=== PATIENT | male | born 1930 | race Caucasian/White ===

== ENCOUNTER 2016-06-14 15:18 | Inpatient (IN) | payer MEDICARE, BC ==
[~2016-06-14] VITALS: Ht 182.9 cm; Wt 126.6 kg
[2016-06-14] MEDS ORDERED: Albuterol ud Inhalation HHN ONE (15:30)
[2016-06-14] MEDS ORDERED: Nitroglycerin 2% oint pkt TOPIC ONE (15:45)
--- NOTE | 2016-06-14 16:16 | Diagnostic Imaging Report ---
Indication: Altered mental status Technique: Contiguous 5 mm thick transaxial imaging of the head obtained in a Siemens Sensation [address] scanner. Soft tissue and bone windows generated. Total Dose length Product (DLP): [address] Dose Index Volume (CTDIvol): 70.38 mGy Comparison: none Findings: There is moderate prominence of the ventricles, basal cisterns, and cerebral sulci consistent with atrophy. Moderate, nonspecific, white matter hypoattenuation is noted throughout the brain consistent with chronic small vessel disease. There is no midline shift, edema, acute hemorrhage, mass effect, or abnormal extra-axial fluid collections. Cranial soft tissue air likely indicative of injury or laceration noted over the left temporal region. Partial right mastoid resection noted. Impression: No acute intracranial bleed, mass effect or edema. Moderate atrophy of the brain. Evidence of chronic small vessel disease involving white matter tracts. Left scalp contusion and laceration. Status post partial right mastoidectomy. The CT scanner at [facility] is accredited by the [employer] and the scans are performed using protocols designed to limit radiation exposure to as low as reasonably achievable to attain images of sufficient resolution adequate for diagnostic evaluation.
--- NOTE | 2016-06-14 16:17 | Diagnostic Imaging Report ---
Indication: Chest Pain Comparison: None A single view chest radiograph was obtained. Findings: There is enlargement of the cardiac silhouette with pulmonary vascular redistribution and prominence, hazy vessel margins and the suggestion of interstitial edema consistent with CHF. The bones are osteopenic. Aorta is calcified. Impression: Moderate CHF
[2016-06-14 16:22] LABS: BASOPHILS % (AUTO) 1.1 % (0.0-2.0); EOSINOPHILS % (AUTO) 3.8 % (0.0-3.0); LYMPHOCYTES % (AUTO) 24.6 % (20.0-45.0); MEAN CORPUSCULAR HEMOGLOBIN 28.1 PG (27.0-31.0); MEAN CORPUSCULAR HGB CONC 33.2 G/DL (32.0-36.0); MEAN CORPUSCULAR VOLUME 85 FL (80-99); MEAN PLATELET VOLUME 6.6 FL (6.5-10.1); MONOCYTES % (AUTO) 11.4 % (1.0-10.0); NEUTROPHILS % (AUTO) 59.2 % (45.0-75.0); PLATELET COUNT 132 K/UL (150-450); RED BLOOD COUNT 4.16 M/UL (4.70-6.10); RED CELL DISTRIBUTION WIDTH 18.1 % (11.6-14.8); WHITE BLOOD COUNT 4.8 K/UL (4.8-10.8)
[2016-06-14 16:32] LABS: TROPONIN I < 0.30 ng/mL (<=0.30)
[2016-06-14 16:42] LABS: ALANINE AMINOTRANSFERASE 10 U/L (3-41); ALBUMIN/GLOBULIN RATIO 0.9 (1.0-2.7); ANION GAP 14 (5-15); ASPARTATE AMINO TRANSFERASE 24 U/L (5-40); CALCIUM 8.7 mg/dL (8.6-10.2); CARBON DIOXIDE 30 mEQ/L (20-30); CHLORIDE 96 mEQ/L (98-107); HEMOLYSIS 3; SODIUM 140 mEQ/L (135-145); TOTAL PROTEIN 7.1 g/dL (6.6-8.7)
[2016-06-14 16:48] VITALS: BP 150/53
[2016-06-14 16:52] LABS: CKMB 2.5 ng/mL (< 6.7)
[2016-06-14 17:01] LABS: BILIRUBIN,DIRECT 0.5 mg/dL (0.1-0.3)
[2016-06-14] MEDS ORDERED: Miralax 17gm pkt ORAL PRN (17:15)
[2016-06-14 18:00] VITALS: BP 129/70
--- NOTE | 2016-06-14 18:10 | Emergency Room Report ---
History of Present Illness General Chief Complaint: Altered Level of Consciousness Source: Family Member, EMS Present Illness HPI This patient is brought in by EMS. Apparently, the patient had been out and about with his . However, the car broke down and they were stock away from home. The states that typically he sleeps in the afternoons and he was sleeping in the car but when they got home she was unable to arouse him. He was unable to get out of the car. EMS report that when they arrived he is minimally responsive to them and had a low oxygen saturation in the high 70s. The reports that he does have a history of congestive heart failure and COPD. She states at home he normally is on oxygen and when he is sleeping she has him on CPAP. She states that he was out for an extended time. He has a lot of fluid overload secondary to congestive heart failure. She states that his abdomen has a lot of fluid as does his lower extremities. His primary physician give him Lasix. He normally goes to [facility]. Her last admission there was for pneumonia about 6 months ago. The patient himself does open his eyes to stimulation and makes eye contact. He does not give a history. Allergies: Coded Allergies: No Known Allergies (Unverified , 06/14/16) Patient History Past Medical History: see triage record, CO, CAD, CHF, AFib, COPD, pneumonia, GERD, other - prostate ca Social History: Denies: alcohol use, drug use, smoking Reviewed Nursing Documentation: PMH: Agreed, PSxH: Agreed Nursing Documentation-PMH Past Medical History: No History, Except For Hx Cardiac Problems: Yes - a fib, CHF Hx Hypertension: Yes Hx COPD: Yes Hx Diabetes: Yes Hx Cancer: Yes - prostate cancer Review of Systems All Other Systems: negative except mentioned in HPI Physical Exam Vital Signs Date Time Temp Pulse Resp B/P Pulse Ox O2 Delivery O2 Flow Rate FiO2 06/14/16 15:12 64 16 142/76 97 Non-Rebreather 15.0 06/14/16 15:37 50 Sp02 EP Interpretation: reviewed, abnormal General Appearance: no apparent distress, alert, GCS 15, non-toxic Head: normocephalic, atraumatic Eyes: bilateral eye PERRL, bilateral eye normal inspection ENT: normal pharynx, no angioedema Neck: full range of motion, supple/symm/no masses Respiratory: chest non-tender, rales, wheezing, expiration Cardiovascular #1: irregularly irregular, edema - 3+BLE edema Gastrointestinal: normal bowel sounds, non tender, soft, no guarding, no rebound, distended Rectal: deferred Musculoskeletal: normal range of motion, non-tender Neurologic: responsive, other - Sleepy but non-focal. Psychiatric: other - Unable to fully assess Skin: normal color, no rash, warm/dry, well hydrated Medical Decision Making Diagnostic Impression: Primary Impression: CHF exacerbation Additional Impressions: Wheezing Pulmonary edema ER Course This patient was initially hypoxemic on arrival. He did improve with only nasal cannula with time. Initially the patient was in the high 80s and then improved into the mid 90s with nasal cannula oxygen. The patient was also wheezing and appears to have a mixed of COPD exacerbation and CHF exacerbation. I treated for both with breathing treatments and also Lasix and nitroglycerin. The patient was placed on BiPAP for comfort. There is no evidence of intracranial process or other etiology of this patient's altered mental status. Likely, this patient is off oxygen for to long and became hypoxemic. Regardless, the patient is admitted to the ICU step down. This patient is critically ill. This patient required complex medical decision- making, aggressive intervention, extensive laboratory workup and monitoring. Critical care time: 40 minutes. Labs Test 06/14/16 16:00 White Blood Count 4.8 K/UL (4.8-10.8) Red Blood Count 4.16 M/UL (4.70-6.10) Hemoglobin 11.7 G/DL (14.2-18.0) Hematocrit 35.3 % (42.0-52.0) Mean Corpuscular Volume 85 FL (80-99) Mean Corpuscular Hemoglobin 28.1 PG (27.0-31.0) Mean Corpuscular Hemoglobin Concent 33.2 G/DL (32.0-36.0) Red Cell Distribution Width 18.1 % (11.6-14.8) Platelet Count 132 K/UL (150-450) Mean Platelet Volume 6.6 FL (6.5-10.1) Neutrophils (%) (Auto) 59.2 % (45.0-75.0) Lymphocytes (%) (Auto) 24.6 % (20.0-45.0) Monocytes (%) (Auto) 11.4 % (1.0-10.0) Eosinophils (%) (Auto) 3.8 % (0.0-3.0) Basophils (%) (Auto) 1.1 % (0.0-2.0) Sodium Level 140 mEQ/L (135-145) Potassium Level 4.0 mEQ/L (3.4-4.9) Chloride Level 96 mEQ/L (98-107) Carbon Dioxide Level 30 mEQ/L (20-30) Anion Gap 14 (5-15) Blood Urea Nitrogen 46 mg/dL (7-23) Creatinine 2.0 mg/dL (0.7-1.2) Estimat Glomerular Filtration Rate mL/min (>60) Glucose Level 107 mg/dL (74-106) Lactic Acid Level 0.90 mmol/L (0.66-2.22) Calcium Level 8.7 mg/dL (8.6-10.2) Total Bilirubin 1.3 mg/dL (0.0-1.2) Direct Bilirubin 0.5 mg/dL (0.1-0.3) Aspartate Amino Transf (AST/SGOT) 24 U/L (5-40) Alanine Aminotransferase (ALT/SGPT) 10 U/L (3-41) Alkaline Phosphatase 145 U/L (40-129) Total Creatine Kinase 51 U/L (38-174) Creatine Kinase MB 2.5 ng/mL (< 6.7) Creatine Kinase MB Relative Index 4.9 Troponin I < 0.30 ng/mL (<=0.30) Total Protein 7.1 g/dL (6.6-8.7) Albumin 3.4 g/dL (3.5-5.2) Globulin 3.7 g/dL Albumin/Globulin Ratio 0.9 (1.0-2.7) EKG Diagnostic Results Rate: bradycardiac Rhythm: other ST Segments: no acute changes Other Impression Atrial fibrillation w/ a slow ventricular response. Rhythm Strip Diag. Results EP Interpretation: yes Rate: 60's Rhythm: no PVC's, no ectopy Other Impression A.fib with a slow ventricular response. Chest X-Ray Diagnostic Results EP Interpretation: Yes Findings: no pneumothorax, other Number of Views: 1 Other Impression Diffuse patchy opacities c/w pulmonary edema. Last Vital Signs Date Time Temp Pulse Resp B/P Pulse Ox O2 Delivery O2 Flow Rate FiO2 5/9/17 16:48 58 150/53 Bi-pap 100 06/14/16 16:09 14 100 06/14/16 15:12 15.0 Status: improved Disposition: ADMITTED INPATIENT Condition: Critical Referrals: NON PHYSICIAN (PCP) KEYON PICKETT D.O. June 14, 2016 18:10
[2016-06-14 20:00] VITALS: BP 114/72
[2016-06-14] MEDS: Heparin 5000 units/ml inj SUBQ SCH (21:00)
[2016-06-14] MEDS ORDERED: TRAMADOL HCL50 MG ORAL (22:05)
[2016-06-14] MEDS ORDERED: ROBITUSSIN100 MG/52 ORAL (22:05)
[2016-06-14] MEDS ORDERED: BENZONATATE100 MG ORAL (22:05)
[2016-06-14] MEDS ORDERED: DESITIN DIAPER28 GM TP (22:05)
[2016-06-14] MEDS ORDERED: UBIQUINOL100 MG PO (22:05)
[2016-06-14] MEDS ORDERED: WARFARIN SODIUM1 MG ORAL (22:05)
[2016-06-14] MEDS ORDERED: VITAMIN D400 INTLU ORAL (22:05)
[2016-06-14] MEDS ORDERED: DUONEB 0.5-3(2.53 ML HHN (22:05)
[2016-06-14] MEDS ORDERED: POTASSIUM CHLO20 ME2 ORAL (22:05)
[2016-06-14] MEDS ORDERED: TAMSULOSIN HCL0.4 MG ORAL (22:05)
[2016-06-14] MEDS ORDERED: COLCHICINE0.6 M1 PO (22:05)
[2016-06-14] MEDS ORDERED: TORSEMIDE20 MG ORAL (22:05)
[2016-06-14] MEDS ORDERED: VITAMIN B-1100 MG ORAL (22:05)
[2016-06-14] MEDS ORDERED: STARLIX60 MG ORAL (22:05)
[2016-06-15] VITALS: BP 156/71
[2016-06-15 04:00] VITALS: BP 120/71
[2016-06-15 05:33] LABS: BASOPHILS % (AUTO) 1.1 % (0.0-2.0); EOSINOPHILS % (AUTO) 4.1 % (0.0-3.0); LYMPHOCYTES % (AUTO) 24.3 % (20.0-45.0); MEAN CORPUSCULAR HEMOGLOBIN 26.1 PG (27.0-31.0); MEAN CORPUSCULAR HGB CONC 30.7 G/DL (32.0-36.0); MEAN CORPUSCULAR VOLUME 85 FL (80-99); MEAN PLATELET VOLUME 7.4 FL (6.5-10.1); MONOCYTES % (AUTO) 13.2 % (1.0-10.0); NEUTROPHILS % (AUTO) 57.4 % (45.0-75.0); PLATELET COUNT 127 K/UL (150-450); RED BLOOD COUNT 3.98 M/UL (4.70-6.10); RED CELL DISTRIBUTION WIDTH 18.2 % (11.6-14.8)
[2016-06-15 05:49] LABS: TROPONIN I < 0.30 ng/mL (<=0.30)
[2016-06-15 05:55] LABS: ANION GAP 15 (5-15); CALCIUM 8.7 mg/dL (8.6-10.2); CARBON DIOXIDE 26 mEQ/L (20-30); CHLORIDE 102 mEQ/L (98-107); CREATININE 1.9 mg/dL (0.7-1.2); HEMOLYSIS 10; PHOSPHORUS 4.3 mg/dL (2.5-4.8); POTASSIUM 3.9 mEQ/L (3.4-4.9); SODIUM 143 mEQ/L (135-145)
[2016-06-15 05:56] LABS: ALANINE AMINOTRANSFERASE 8 U/L (3-41); ANION GAP 13 (5-15); ASPARTATE AMINO TRANSFERASE 21 U/L (5-40); CALCIUM 8.6 mg/dL (8.6-10.2); CARBON DIOXIDE 28 mEQ/L (20-30); CHLORIDE 103 mEQ/L (98-107); CREATININE 1.9 mg/dL (0.7-1.2); MAGNESIUM 2.2 mg/dL (1.7-2.5); POTASSIUM 3.7 mEQ/L (3.4-4.9); SODIUM 144 mEQ/L (135-145); TOTAL PROTEIN 6.7 g/dL (6.6-8.7)
[2016-06-15 05:57] LABS: ALBUMIN/GLOBULIN RATIO 0.8 (1.0-2.7); HEMOLYSIS 0
[2016-06-15 06:02] LABS: INR 3.4 (0.9-1.1); PROTHROMBIN TIME 36.2 SEC (9.30-11.50)
[2016-06-15] MEDS: Nateglinide 60mg tab ORAL SCH ×3 (06:21→17:31)
[2016-06-15 08:01] VITALS: BP 130/68
[2016-06-15 08:22] LABS: ABG BASE EXCESS 3.5; ABG PCO2 45.5 mmHg (35.0-45.0)
[2016-06-15] MEDS: Benzonatate 100mg Perles ORAL SCH ×3 (09:46→17:31)
[2016-06-15] MEDS: Tamsulosin 0.4mg cap ORAL SCH ×2 (09:46→17:31)
[2016-06-15] MEDS: Heparin 5000 units/ml inj SUBQ SCH (09:48)
--- NOTE | 2016-06-15 11:51 | Diagnostic Imaging Report ---
Indication: Dyspnea Comparison: 06/14/2016 A single view chest radiograph was obtained. Findings: Similar findings demonstrated with vascular congestion and cardiomegaly. In pression: CHF. No change
[2016-06-15 12:00] VITALS: BP 118/61
--- NOTE | 2016-06-15 12:09 | History and Physical ---
History of Present Illness General Date patient seen: June 15, 2016 Reason for Hospitalization: Altered Level of Consciousness Present Illness HPI *85 year old male with hx of CAD, Afib, SANTI, CHF, COPD is brought in by EMS because his was unable to arouse him. EMS report that when they arrived he is minimally responsive to them and had a low oxygen saturation in the high 70s. Patient normally is on oxygen and when he is sleeping she has him on CPAP. He was recently diagnosed to have pulmonary edema and was started on Lasix. His CXR showed bilateral pulmonary edema. He is admitted to telemetry for further evaluation. Allergies: Coded Allergies: No Known Allergies (Unverified , 06/14/16) Medication History Scheduled Benzonatate* (Benzonatate*), 100 MG ORAL THREE TIMES A DAY, (Reported) Colchicine (Colchicine), 0.6 MG PO DAILY, (Reported) Ipratropium/Albuterol Sulfate (DuoNeb 0.5-3(2.5)mg/3ml), 3 ML HHN EVERY 4 HOURS, (Reported) Potassium Chloride (Potassium Chloride), 20 MEQ ORAL DAILY, (Reported) Tamsulosin Hcl (Tamsulosin Hcl*), 0.4 MG ORAL TWICE A DAY, (Reported) Thiamine Hcl* (Vitamin B-1*), 300 MG ORAL DAILY, (Reported) Torsemide* (Demadex*), 20 MG ORAL DAILY, (Reported) Ubiquinol (Ubiquinol), 400 MG PO DAILY, (Reported) Vitamin D (Vitamin D3), 2,000 UNITS ORAL DAILY, (Reported) Warfarin Sod* (Warfarin Sod*), 1 MG ORAL DAILY, (Reported) Scheduled PRN Guaifenesin (Guaifenesin), 200 MG ORAL Q4HR PRN for For Cough, (Reported) Nateglinide* (Starlix*), 120 MG ORAL THREE TIMES A DAY PRN for Hyperglycemia, ( Reported) Tramadol Hcl* (Ultram*), 50 MG ORAL Q8HR PRN for For Pain, (Reported) Miscellaneous Medications Cod Liver Oil/Zinc Oxide (Desitin Diaper Rash 40% Paste), 28 GM TP, (Reported) Patient History Healthcare decision maker DEBBI MENDOZA ( ) [phone] Resuscitation status Full Code Advanced Directive on File No Past Medical/Surgical History Past Medical/Surgical History: (1) CAD (coronary artery disease) (2) COPD (chronic obstructive pulmonary disease) (3) CHF (congestive heart failure) Review of Systems Constitutional: Reports: malaise Respiratory: Reports: shortness of breath All Other Systems: negative except mentioned in HPI Physical Exam General Appearance: WD/WN Lines, tubes and drains: peripheral, central line HEENT: normocephalic, atraumatic Neck: non-tender, normal alignment Respiratory/Chest: chest wall non-tender, crackles/rales Cardiovascular/Chest: normal peripheral pulses, normal rate Abdomen: normal bowel sounds, non tender Genitourinary/Rectal: normal genital exam Extremities: moderate edema Neurologic: tap puller II-XII grossly normal Last 24 Hour Vital Signs Date Time Temp Pulse Resp B/P Pulse Ox O2 Delivery O2 Flow Rate FiO2 06/15/16 10:43 55 16 96 Facial 40 06/15/16 08:31 94 5.0 40 06/15/16 08:23 94 Nasal Cannula 5.0 40 06/15/16 08:23 Nasal Cannula 5.0 40 06/15/16 08:04 69 06/15/16 08:01 98.5 61 18 130/68 91 Nasal Cannula 4.0 06/15/16 05:21 48 13 96 Facial 40 06/15/16 04:00 28 06/15/16 04:00 97.9 58 16 120/71 98 Bi-pap 06/15/16 03:54 53 06/15/16 03:29 56 14 97 Facial 40 06/15/16 01:14 58 13 97 Facial 40 06/15/16 00:00 98.0 60 156/71 99 Bi-pap 06/15/16 00:00 28 06/14/16 23:57 56 06/14/16 23:20 78 18 98 Facial 40 06/14/16 20:31 55 14 97 40 06/14/16 20:00 28 06/14/16 20:00 97.7 68 114/72 Nasal Cannula 3.0 06/14/16 19:41 Nasal Cannula 4.0 36 06/14/16 19:40 96 Nasal Cannula 4.0 36 06/14/16 19:39 58 18 4.0 36 06/14/16 19:26 67 06/14/16 18:00 97.7 83 129/70 Nasal Cannula 3.0 06/14/16 17:00 58 14 150/53 100 Bi-pap 15.0 100 06/14/16 16:48 58 150/53 Bi-pap 100 06/14/16 16:09 59 14 100 Bi-pap 50 06/14/16 16:08 50 06/14/16 16:06 59 14 Bi-pap 50 06/14/16 16:04 59 14 100 Facial 50 06/14/16 15:57 139/76 06/14/16 15:37 59 14 100 Bi-pap 50 06/14/16 15:12 64 16 142/76 97 Non-Rebreather 15.0 Intake and Output 06/14/16 06/15/16 19:00 07:00 Intake Total 100 ml Output Total 0 ml Balance 0 ml 100 ml Intake Oral 100 ml Output Urine Total 0 ml # Voids 4 Laboratory Tests Test 06/14/16 16:00 06/15/16 03:25 06/15/16 04:20 White Blood Count 4.8 K/UL (4.8-10.8) 4.0 K/UL (4.8-10.8) L Red Blood Count 4.16 M/UL (4.70-6.10) L 3.98 M/UL (4.70-6.10) L Hemoglobin 11.7 G/DL (14.2-18.0) L 10.4 G/DL (14.2-18.0) L Hematocrit 35.3 % (42.0-52.0) L 33.9 % (42.0-52.0) L Mean Corpuscular Volume 85 FL (80-99) 85 FL (80-99) Mean Corpuscular Hemoglobin 28.1 PG (27.0-31.0) 26.1 PG (27.0-31.0) L Mean Corpuscular Hemoglobin Concent 33.2 G/DL (32.0-36.0) 30.7 G/DL (32.0-36.0) L Red Cell Distribution Width 18.1 % (11.6-14.8) H 18.2 % (11.6-14.8) H Platelet Count 132 K/UL (150-450) L 127 K/UL (150-450) L Mean Platelet Volume 6.6 FL (6.5-10.1) 7.4 FL (6.5-10.1) Neutrophils (%) (Auto) 59.2 % (45.0-75.0) 57.4 % (45.0-75.0) Lymphocytes (%) (Auto) 24.6 % (20.0-45.0) 24.3 % (20.0-45.0) Monocytes (%) (Auto) 11.4 % (1.0-10.0) H 13.2 % (1.0-10.0) H Eosinophils (%) (Auto) 3.8 % (0.0-3.0) H 4.1 % (0.0-3.0) H Basophils (%) (Auto) 1.1 % (0.0-2.0) 1.1 % (0.0-2.0) Sodium Level 140 mEQ/L (135-145) 143 mEQ/L (135-145) Potassium Level 4.0 mEQ/L (3.4-4.9) 3.9 mEQ/L (3.4-4.9) Chloride Level 96 mEQ/L (98-107) L 102 mEQ/L (98-107) Carbon Dioxide Level 30 mEQ/L (20-30) 26 mEQ/L (20-30) Anion Gap 14 (5-15) 15 (5-15) Blood Urea Nitrogen 46 mg/dL (7-23) H 45 mg/dL (7-23) H Creatinine 2.0 mg/dL (0.7-1.2) H 1.9 mg/dL (0.7-1.2) H Estimat Glomerular Filtration Rate mL/min (>60) mL/min (>60) Glucose Level 107 mg/dL (74-106) H 74 mg/dL (74-106) Lactic Acid Level 0.90 mmol/L (0.66-2.22) Calcium Level 8.7 mg/dL (8.6-10.2) 8.7 mg/dL (8.6-10.2) Magnesium Level 2.2 mg/dL (1.7-2.5) 2.2 mg/dL (1.7-2.5) Total Bilirubin 1.3 mg/dL (0.0-1.2) H 1.0 mg/dL (0.0-1.2) Direct Bilirubin 0.5 mg/dL (0.1-0.3) H Aspartate Amino Transf (AST/SGOT) 24 U/L (5-40) 21 U/L (5-40) Alanine Aminotransferase (ALT/SGPT) 10 U/L (3-41) 8 U/L (3-41) Alkaline Phosphatase 145 U/L (40-129) H 127 U/L (40-129) Total Creatine Kinase 51 U/L (38-174) Creatine Kinase MB 2.5 ng/mL (< 6.7) Creatine Kinase MB Relative Index 4.9 Troponin I < 0.30 ng/mL (<=0.30) < 0.30 ng/mL (<=0.30) Total Protein 7.1 g/dL (6.6-8.7) 6.7 g/dL (6.6-8.7) Albumin 3.4 g/dL (3.5-5.2) L 2.9 g/dL (3.5-5.2) L Globulin 3.7 g/dL 3.7 g/dL Albumin/Globulin Ratio 0.9 (1.0-2.7) L 0.8 (1.0-2.7) L Prothrombin Time 36.2 SEC (9.30-11.50) H Prothromb Time International Ratio 3.4 (0.9-1.1) H Activated Partial Thromboplast Time 40 SEC (23-33) H Phosphorus Level 4.3 mg/dL (2.5-4.8) Arterial Blood pH 7.410 (7.350-7.450) Arterial Blood Partial Pressure CO2 45.5 mmHg (35.0-45.0) H Arterial Blood Partial Pressure O2 77.6 mmHg (75.0-100.0) Arterial Blood HCO3 28.6 mmol/L (22.0-26.0) H Arterial Blood Oxygen Saturation 94.9 % (92.0-98.0) Arterial Blood Base Excess 3.5 Kirby Test N/a Height (Feet): 6 Height (Inches): 0.00 Weight (Pounds): 280 Medications Current Medications Medications (Trade) Dose Ordered Sig/Nga Route PRN Reason Start Time Stop Time Status Last Admin Dose Admin Acetaminophen (Tylenol) 650 mg Q4H PRN ORAL Fever 06/14/16 17:15 07/14/16 17:14 Albuterol/ Ipratropium (DuoNeb 0.5-3(2.5)mg/3ml) 3 ml Q4H PRN HHN Shortness of Breath 06/14/16 17:15 06/19/16 17:14 Benzonatate (Tessalon Perles) 100 mg THREE TIMES A DAY ORAL 06/15/16 09:00 07/15/16 08:59 06/15/16 09:46 Dextrose (Dextrose 50%) STAT PRN IV Hypoglycemia 06/14/16 17:15 07/14/16 17:14 Guaifenesin (Robitussin) 200 mg Q4H PRN ORAL For Cough 06/14/16 22:30 07/14/16 22:29 Nateglinide (Starlix) 120 mg BEFORE MEALS ORAL 06/15/16 06:30 07/15/16 06:29 06/15/16 06:21 Ondansetron HCl (Zofran) 4 mg Q6H PRN IVP Nausea & Vomiting 06/14/16 17:15 07/14/16 17:14 Polyethylene Glycol (Miralax) 17 gm DAILYPRN PRN ORAL Constipation 06/14/16 17:15 07/14/16 17:14 Tamsulosin HCl (Flomax) 0.4 mg TWICE A DAY ORAL 06/15/16 09:00 07/15/16 08:59 06/15/16 09:46 Temazepam (Restoril) 15 mg HSPRN PRN ORAL Insomnia 06/14/16 17:15 06/21/16 17:14 Tramadol HCl (Ultram) 50 mg Q8H PRN ORAL For Pain 06/14/16 22:30 06/21/16 22:29 Assessment/Plan Problem List: (1) Acute encephalopathy ICD Codes: G93.40 - Encephalopathy, unspecified SNOMED: 1091668 (2) Acute respiratory failure ICD Codes: J96.00 - Acute respiratory failure, unspecified whether with hypoxia or hypercapnia SNOMED: 77756293 (3) Pulmonary edema ICD Codes: J81.1 - Chronic pulmonary edema SNOMED: 50123339 (4) SANTI (obstructive sleep apnea) ICD Codes: G47.33 - Obstructive sleep apnea (adult) (pediatric) SNOMED: 18629986 (5) COPD (chronic obstructive pulmonary disease) ICD Codes: J44.9 - Chronic obstructive pulmonary disease, unspecified SNOMED: 53592165 (6) Bradycardia ICD Codes: R00.1 - Bradycardia, unspecified SNOMED: 79573968 Assessment/Plan KAMILA monitoring Neuro evaluation echo cardiac evaluation bipap during sleep diuretics evaluate sinus bradycardia, might need pacemaker. RONAK GOMES June 15, 2016 12:09
[2016-06-15] MEDS ORDERED: DuoNeb 0.5-3(2.5)mg/3ml neb HHN PRN (13:00)
[2016-06-15] MEDS: guaiFENesin 100mg/5ml Liq ud ORAL PRN (13:04)
--- NOTE | 2016-06-15 15:14 | Diagnostic Imaging Report ---
Indication:Elevated Bun and Creatinine. Technique: Grayscale and duplex Doppler imaging of the kidneys performed. Comparison: None Findings: There is moderate bilateral hydronephrosis demonstrated. The bladder is moderately distended having a volume of 439 cc. Boggs catheter insertion should be considered. There is mild ascites. IVC is unremarkable. There are tandem cysts noted within the upper pole of the right kidney measuring 2.0 and 1.2 CM. Impression: Moderate distention of the urinary bladder likely accounting for moderate bilateral hydronephrosis. Preliminary results were conveyed to clinical staff by Dr. sharif 20:58, 06/14/16
[2016-06-15 16:00] VITALS: BP 164/74
--- NOTE | 2016-06-15 16:52 | Cardiology Report ---
APPROVED REPORT EXAM: Two-dimensional and M-mode echocardiogram with Doppler and color Doppler. INDICATION Left Ventricular Function M-Mode DIMENSIONS IVSd1.1 (0.7-1.1cm)Left Atrium (MM)6.6 (1.6-4.0cm) LVDd4.7 (3.5-5.6cm)Aortic Root3.0 (2.0-3.7cm) PWd1.4 (0.7-1.1cm)Aortic Cusp Exc.1.7 (1.5-2.0cm) LVDs2.4 (2.5-4.0cm) PWs2.1 cm Normal left ventricular chamber size. Global hypokinesis aith septal dyskinesis. Left ventricular ejection fraction estimated to be 35-40 %. No evidence of ventricular hypertrophy. Small pericardial effusion. Severe bi-atrial enlargement. Right ventricular chamber size is within normal limits. Mild focal aortic valve sclerosis with adequate cusp excursion. Mildly thickened mitral valve leaflets with normal excursion. Mild mitral annulus and aortic root calcification. Pulmonic valve not well visualized. Normal tricuspid valve structure. IVC dilated at 3.1 cm without physiologic collapse, estimated RAP is 15 mmHg A color flow and spectral Doppler study was performed and revealed: No aortic regurgitation. Mild mitral regurgitation. Left ventricular diastolic function could not be determined due to a-fib. Moderate tricuspid regurgitation. Tricuspid systolic velocities suggests peak right ventricular systolic pressure of 90 mmHg, consistent with severe pulmonary hypertension. Mild pulmonic regurgitation present.
[2016-06-15 18:55] LABS: APPEARANCE,URINE CLEAR; KETONES,URINE NEGATIVE (NEGATIVE); LEUKOCYTE ESTERASE ,URINE NEGATIVE (NEGATIVE); NITRITE,URINE NEGATIVE (NEGATIVE); PH,URINE 5 (4.5-8.0); PROTEIN,URINE NEGATIVE (NEGATIVE); UROBILINOGEN,URINE NORMAL MG/DL (0.0-1.0)
[2016-06-15 20:00] VITALS: BP 155/53
--- NOTE | 2016-06-15 20:34 | Cardiology Progress Note ---
Assessment/Plan Assessment/Plan ams possible co2 narcosis mrobid obesity with alveolar hypoventilation syndrome jose on cpap afib with slow hr refused pacer implantation chronic coagulopathy with couamdin cm nocturnal hypoxemia iwth pulm htn elevated ca 19-9 cri hyperlipidemia cri however recetn cr 1.3at [facility] 3 mon ago prostate cancer with hydronephrosis copd gout core pulmonale looks and feels much improved infact woke up last nite after my inital evalution [facility] data reveid cr improved but nto at base line conteinu bipap resume diuretic resume Coumadin per pharmacy medical support eryn observation avoid neg chronotropic agents trop seem fine lv dyusfucntion may be new comapred to prior has refused mary for phtn recentlyu Subjective Cardiovascular: Denies: chest pain, lightheadedness, palpitations Respiratory: Denies: shortness of breath Gastrointestinal/Abdominal: Denies: abdominal pain Genitourinary: Denies: burning Objective Last 24 Hour Vital Signs Date Time Temp Pulse Resp B/P Pulse Ox O2 Delivery O2 Flow Rate FiO2 06/15/16 19:34 Bi-pap 40 06/15/16 19:34 97 Bi-pap 40 06/15/16 19:00 51 15 96 Facial 40 06/15/16 16:00 96.9 54 18 164/74 98 Nasal Cannula 4.0 06/15/16 15:22 60 06/15/16 12:09 52 06/15/16 12:00 97.2 57 18 118/61 95 Nasal Cannula 4.0 06/15/16 10:43 55 16 96 Facial 40 06/15/16 08:31 94 5.0 40 06/15/16 08:23 94 Nasal Cannula 5.0 40 06/15/16 08:23 Nasal Cannula 5.0 40 06/15/16 08:04 69 06/15/16 08:01 98.5 61 18 130/68 91 Nasal Cannula 4.0 06/15/16 05:21 48 13 96 Facial 40 06/15/16 04:00 28 06/15/16 04:00 97.9 58 16 120/71 98 Bi-pap 06/15/16 03:54 53 06/15/16 03:29 56 14 97 Facial 40 06/15/16 01:14 58 13 97 Facial 40 06/15/16 00:00 98.0 60 156/71 99 Bi-pap 06/15/16 00:00 28 06/14/16 23:57 56 06/14/16 23:20 78 18 98 Facial 40 06/14/16 20:31 55 14 97 40 General Appearance: no apparent distress, alert, other - on cpap Neck: normal alignment Cardiovascular: irregularly irregular Respiratory/Chest: expiratory wheezing, inspiratory wheezing Abdomen: non tender, soft, other - obese Extremities: trace edema Intake and Output 06/14/16 06/15/16 19:00 07:00 Intake Total 100 ml Output Total 0 ml Balance 0 ml 100 ml Intake Oral 100 ml Output Urine Total 0 ml # Voids 4 Laboratory Tests Test 06/15/16 03:25 06/15/16 04:20 06/15/16 18:41 06/15/16 18:42 White Blood Count 4.0 K/UL (4.8-10.8) L Red Blood Count 3.98 M/UL (4.70-6.10) L Hemoglobin 10.4 G/DL (14.2-18.0) L Hematocrit 33.9 % (42.0-52.0) L Mean Corpuscular Volume 85 FL (80-99) Mean Corpuscular Hemoglobin 26.1 PG (27.0-31.0) L Mean Corpuscular Hemoglobin Concent 30.7 G/DL (32.0-36.0) L Red Cell Distribution Width 18.2 % (11.6-14.8) H Platelet Count 127 K/UL (150-450) L Mean Platelet Volume 7.4 FL (6.5-10.1) Neutrophils (%) (Auto) 57.4 % (45.0-75.0) Lymphocytes (%) (Auto) 24.3 % (20.0-45.0) Monocytes (%) (Auto) 13.2 % (1.0-10.0) H Eosinophils (%) (Auto) 4.1 % (0.0-3.0) H Basophils (%) (Auto) 1.1 % (0.0-2.0) Prothrombin Time 36.2 SEC (9.30-11.50) H Prothromb Time International Ratio 3.4 (0.9-1.1) H Activated Partial Thromboplast Time 40 SEC (23-33) H Sodium Level 143 mEQ/L (135-145) Potassium Level 3.9 mEQ/L (3.4-4.9) Chloride Level 102 mEQ/L (98-107) Carbon Dioxide Level 26 mEQ/L (20-30) Anion Gap 15 (5-15) Blood Urea Nitrogen 45 mg/dL (7-23) H Creatinine 1.9 mg/dL (0.7-1.2) H Estimat Glomerular Filtration Rate mL/min (>60) Glucose Level 74 mg/dL (74-106) Calcium Level 8.7 mg/dL (8.6-10.2) Phosphorus Level 4.3 mg/dL (2.5-4.8) Magnesium Level 2.2 mg/dL (1.7-2.5) Total Bilirubin 1.0 mg/dL (0.0-1.2) Aspartate Amino Transf (AST/SGOT) 21 U/L (5-40) Alanine Aminotransferase (ALT/SGPT) 8 U/L (3-41) Alkaline Phosphatase 127 U/L (40-129) Troponin I < 0.30 ng/mL (<=0.30) Total Protein 6.7 g/dL (6.6-8.7) Albumin 2.9 g/dL (3.5-5.2) L Globulin 3.7 g/dL Albumin/Globulin Ratio 0.8 (1.0-2.7) L Arterial Blood pH 7.410 (7.350-7.450) Arterial Blood Partial Pressure CO2 45.5 mmHg (35.0-45.0) H Arterial Blood Partial Pressure O2 77.6 mmHg (75.0-100.0) Arterial Blood HCO3 28.6 mmol/L (22.0-26.0) H Arterial Blood Oxygen Saturation 94.9 % (92.0-98.0) Arterial Blood Base Excess 3.5 Kirby Test N/a Urine Color Pale yellow Urine Appearance Clear Urine pH 5 (4.5-8.0) Urine Specific Hunters 1.015 (1.005-1.035) Urine Protein Negative (NEGATIVE) Urine Glucose (UA) Negative (NEGATIVE) Urine Ketones Negative (NEGATIVE) Urine Occult Blood Negative (NEGATIVE) Urine Nitrite Negative (NEGATIVE) Urine Bilirubin Negative (NEGATIVE) Urine Urobilinogen Normal MG/DL (0.0-1.0) Urine Leukocyte Esterase Negative (NEGATIVE) Urine Opiates Screen Negative (NEGATIVE) Urine Barbiturates Screen Negative (NEGATIVE) Phencyclidine (PCP) Screen Negative (NEGATIVE) Urine Amphetamines Screen Negative (NEGATIVE) Urine Benzodiazepines Screen Negative (NEGATIVE) Urine Cocaine Screen Negative (NEGATIVE) Urine Marijuana (THC) Screen Negative (NEGATIVE) KELLEE MUNGUIA June 15, 2016 20:34
[2016-06-16] VITALS: BP 139/71
--- NOTE | 2016-06-16 02:19 | Consultation ---
DATE OF CONSULTATION: 06/15/2016 CARDIOLOGY CONSULTATION REFERRING PHYSICIAN: Cristina Escalante M.D. REASON FOR EVALUATION AND MANAGEMENT: Alteration of mentation and arrhythmia and congestive heart failure. HISTORY OF PRESENT ILLNESS: This is an elderly gentleman, who really was unable to provide any meaningful history at time of my evaluation yesterday, and was brought by the paramedics stuck on the way to home. said that he was sleeping in the car when they got home, she was unable to arouse him and get him out of it. EMS were notified. They reportedly found the patient sitting in the car front of the house in moderate distress with altered level of consciousness for 30 minutes according to family members on the scene. Pupils looked slightly constricted. No trauma. The patient was unresponsive to pain. Oxygen saturation was 70% on room air. Initially, the lungs were clear. Skin warm and dry. The patient was given 2 mg of administered and 2 liters of nasal cannula by nonrebreather mask of [address] On route to the hospital, and was brought to the emergency room at [facility]. Initial blood pressures taken and the patient was found with a heart rate of 65 and blood pressure 142/72. The patient remained unresponsive really cold because dry at the time of arrival. The apparently told the emergency physician that the patient has a history of congestive heart failure and chronic obstructive pulmonary disease apparently he was just recently discharged from home. At home, he is on oxygen when he is sleeping. He has a CPAP as well because lot of fluid overload secondary to congestive heart failure recently and he was on diuretics and recently discharged from [facility]. I have had a chance to review some of the [facility] records this is from back in February 2016. 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, acute on chronic cor pulmonale right heart failure with BNP of 1800, severe diastolic heart failure, severe tricuspid regurgitation, pulmonary hypertension with PA pressures in the 90s, chronic hypoxic respiratory failure on baseline, 3 L of nasal cannula, toxic metabolic encephalopathy, metastatic prostate cancer, bilateral hydronephrosis secondary to metastatic cancer, troponemia secondary to demand ischemia, chronic atrial fibrillation slow ventricular response, chronic sick sinus syndrome with refusal of pacemaker in the past and premature ventricular contraction, subtherapeutic INR, 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 MEDICATIONS: His medications includes Lupron injections every 3 months, Starlix 3 times a day, potassium 20 mEq half a tablet in the morning, Flomax 0.4 mg 1 tab twice a day, torsemide 20 mg daily, vitamin D3, Zinc oxide, colchicine 0.6 mg on a p.r.n. basis, Coumadin, benzonatate 100 mg 3 times a day, CoQ10, DuoNeb breathing and Robitussin and tramadol. REVIEW OF SYSTEMS: Unable to obtain because of the patient's alteration. PHYSICAL EXAMINATION: GENERAL: Shows to be obese elderly gentleman, unresponsive, noncommunicative and very dry oral mucosa. NECK: Supple. LUNGS: Clear anteriorly. CARDIAC EXAMINATION: Irregular. No heaves or thrills noted. ABDOMEN: Obese. Positive bowel sounds. Nontender. EXTREMITIES: Significant edema in lower extremities bilaterally. NEUROLOGICAL: Noncommunicative. LABORATORY VALUES: White count of 4.8, hemoglobin 11.6, and platelet count of 132,000. Sodium 140, potassium 4.0, chloride 96, bicarbonate 30, BUN 46, creatinine 2.2 and glucose of 107. Lactic acid 0.9, alkaline phosphate 145, and troponin is less than 0.01. Coags, INR 3.4, and PTT of 40. Urinalysis is unremarkable. Urine drug screen is negative. Chest x-ray performed in the emergency room showed moderate congestive heart failure and head CT showed no acute intracranial bleed, mass effect, or edema. Moderate atrophy of the brain and chronic smallest vessel ischemic white matter tracts, left scalp contusion and laceration, and white mastoidectomy. Renal ultrasound shows moderate distention of the urinary bladder accounted for moderate bilateral hydronephrosis. An electrocardiogram performed shows atrial fibrillation, ventricular response being slow. ASSESSMENT AND PLAN: 1. Altered mentation possibly severe carbon dioxide narcosis. 2. Morbid obesity with hypoventilation syndrome. 3. Obstructive sleep apnea on continuous positive airway pressure therapy. 4. Atrial fibrillation with slow heart rate diffuse chronic coagulopathy secondary to Coumadin. 5. Cardiomyopathy history. 6. Chronic hypoxemia with pulmonary hypertension. 7. Elevated CA-19-9 and chronic insufficiency. 8. Hyperlipidemia. PLAN: Dr. Escalante, this patient was seen in cardiac consultation. The patient initially was seen. He was quite confused. Workup has been initiated and the patient will need to be monitored overnight changes in mentation. Consider an evaluation with placement of a CPAP and evaluation by neurology for further cause of alteration in mental status including if not better ammonia level check, but we will review [facility] data for further evaluation. It should be noted that the information obtained in this note is included in my review of records from [facility] from Dr. Ady Tamez, who is the patient's usual head cashier at [facility]. Of note, the patient's last echocardiogram back in [facility] approximately three months ago showed ejection fraction of 68% and the patient's renal function is BUN of 21 and creatinine 1.3 levels as high as 2.4 have been noted back approximately four months ago and he has had a white count of 5.3, hemoglobin 9.7, and platelet count of 223,000. Austin Correa M.D. DR: ELHAM JOB#: [id number] CC:
[2016-06-16 04:00] VITALS: BP 122/74
[2016-06-16 05:02] LABS: BASOPHILS % (AUTO) 1.4 % (0.0-2.0); EOSINOPHILS % (AUTO) 3.9 % (0.0-3.0); LYMPHOCYTES % (AUTO) 25.1 % (20.0-45.0); MEAN CORPUSCULAR HEMOGLOBIN 26.1 PG (27.0-31.0); MEAN CORPUSCULAR HGB CONC 30.4 G/DL (32.0-36.0); MEAN CORPUSCULAR VOLUME 86 FL (80-99); MEAN PLATELET VOLUME 6.5 FL (6.5-10.1); MONOCYTES % (AUTO) 13.4 % (1.0-10.0); NEUTROPHILS % (AUTO) 56.3 % (45.0-75.0); PLATELET COUNT 137 K/UL (150-450); RED BLOOD COUNT 3.99 M/UL (4.70-6.10); RED CELL DISTRIBUTION WIDTH 18.7 % (11.6-14.8); WHITE BLOOD COUNT 3.8 K/UL (4.8-10.8)
[2016-06-16 05:15] LABS: PROTHROMBIN TIME 31.7 SEC (9.30-11.50)
[2016-06-16 05:29] LABS: ANION GAP 13 (5-15); CALCIUM 8.5 mg/dL (8.6-10.2); CARBON DIOXIDE 30 mEQ/L (20-30); CHLORIDE 98 mEQ/L (98-107); CREATININE 1.9 mg/dL (0.7-1.2); HEMOLYSIS 14; SODIUM 141 mEQ/L (135-145)
[2016-06-16 05:41] LABS: TROPONIN I < 0.30 ng/mL (<=0.30)
[2016-06-16] MEDS: Nateglinide 60mg tab ORAL SCH ×3 (06:25→17:11)
--- NOTE | 2016-06-16 07:34 | Cardiology Progress Note ---
Assessment/Plan Assessment/Plan ams possible co2 narcosis mrobid obesity with alveolar hypoventilation syndrome jose on cpap afib with slow hr has refused pacer implantation chronic coagulopathy with couamdin cm nocturnal hypoxemia iwth pulm htn elevated ca 19-9 cri hyperlipidemia cri however recetn cr 1.3at [facility] 3 mon ago prostate cancer with hydronephrosis copd gout core pulmonale remain awake and responsive cr improved but nto at base line 1.3 continue bipap as needed now back on diuretic on Coumadin per pharmacy tele afib no severe eduardo nor sig pauses avoid neg chronotropic agents trop seem fine lv dysfunction seems new compared to prior [facility] echo reports all trop neg may need ischemia eval at [facility] when dcd form here with 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 dr navarrete has refused mary for phtn recently off ivf in future once renal fxn stable will consider acei home soon Subjective Cardiovascular: Denies: chest pain, lightheadedness, palpitations Respiratory: Reports: shortness of breath Gastrointestinal/Abdominal: Denies: abdominal pain Genitourinary: Denies: burning Objective Last 24 Hour Vital Signs Date Time Temp Pulse Resp B/P Pulse Ox O2 Delivery O2 Flow Rate FiO2 06/16/16 07:01 Nasal Cannula 4.0 40 06/16/16 07:01 94 Nasal Cannula 4.0 40 06/16/16 07:01 60 22 94 Facial 4.0 40 06/16/16 05:00 50 23 97 Facial 40 06/16/16 04:00 97.5 64 12 122/74 98 Bi-pap 40 06/16/16 04:00 28 06/16/16 03:41 66 06/16/16 03:23 59 21 96 Facial 40 06/16/16 01:14 60 18 95 Facial 40 06/16/16 00:00 28 06/16/16 00:00 98.0 55 18 139/71 98 Bi-pap 40 06/15/16 23:43 48 06/15/16 23:05 61 27 95 Facial 40 06/15/16 21:26 57 15 97 Facial 40 06/15/16 20:00 97.8 87 15 155/53 99 Bi-pap 40 06/15/16 19:39 52 06/15/16 19:34 Bi-pap 40 06/15/16 19:34 97 Bi-pap 40 06/15/16 19:00 51 15 96 Facial 40 06/15/16 16:00 96.9 54 18 164/74 98 Nasal Cannula 4.0 06/15/16 15:22 60 06/15/16 12:09 52 06/15/16 12:00 97.2 57 18 118/61 95 Nasal Cannula 4.0 06/15/16 10:43 55 16 96 Facial 40 06/15/16 08:31 94 5.0 40 06/15/16 08:23 94 Nasal Cannula 5.0 40 06/15/16 08:23 Nasal Cannula 5.0 40 06/15/16 08:04 69 06/15/16 08:01 98.5 61 18 130/68 91 Nasal Cannula 4.0 General Appearance: no apparent distress, alert, obese, other - off bipap at the moment remain awake adn rsponsive Neck: supple Cardiovascular: bradycardia, irregularly irregular Respiratory/Chest: expiratory wheezing Abdomen: normal bowel sounds, non tender, soft Extremities: no swelling Intake and Output 06/15/16 06/16/16 19:00 07:00 Intake Total 120 ml 200 ml Balance 120 ml 200 ml Intake Oral 120 ml 200 ml # Voids 1 4 Laboratory Tests Test 06/15/16 18:41 06/15/16 18:42 06/16/16 03:20 Urine Color Pale yellow Urine Appearance Clear Urine pH 5 (4.5-8.0) Urine Specific [place] 1.015 (1.005-1.035) Urine Protein Negative (NEGATIVE) Urine Glucose (UA) Negative (NEGATIVE) Urine Ketones Negative (NEGATIVE) Urine Occult Blood Negative (NEGATIVE) Urine Nitrite Negative (NEGATIVE) Urine Bilirubin Negative (NEGATIVE) Urine Urobilinogen Normal MG/DL (0.0-1.0) Urine Leukocyte Esterase Negative (NEGATIVE) Urine Opiates Screen Negative (NEGATIVE) Urine Barbiturates Screen Negative (NEGATIVE) Phencyclidine (PCP) Screen Negative (NEGATIVE) Urine Amphetamines Screen Negative (NEGATIVE) Urine Benzodiazepines Screen Negative (NEGATIVE) Urine Cocaine Screen Negative (NEGATIVE) Urine Marijuana (THC) Screen Negative (NEGATIVE) White Blood Count 3.8 K/UL (4.8-10.8) L Red Blood Count 3.99 M/UL (4.70-6.10) L Hemoglobin 10.4 G/DL (14.2-18.0) L Hematocrit 34.3 % (42.0-52.0) L Mean Corpuscular Volume 86 FL (80-99) Mean Corpuscular Hemoglobin 26.1 PG (27.0-31.0) L Mean Corpuscular Hemoglobin Concent 30.4 G/DL (32.0-36.0) L Red Cell Distribution Width 18.7 % (11.6-14.8) H Platelet Count 137 K/UL (150-450) L Mean Platelet Volume 6.5 FL (6.5-10.1) Neutrophils (%) (Auto) 56.3 % (45.0-75.0) Lymphocytes (%) (Auto) 25.1 % (20.0-45.0) Monocytes (%) (Auto) 13.4 % (1.0-10.0) H Eosinophils (%) (Auto) 3.9 % (0.0-3.0) H Basophils (%) (Auto) 1.4 % (0.0-2.0) Prothrombin Time 31.7 SEC (9.30-11.50) H Prothromb Time International Ratio 3.0 (0.9-1.1) H Sodium Level 141 mEQ/L (135-145) Potassium Level 4.0 mEQ/L (3.4-4.9) Chloride Level 98 mEQ/L (98-107) Carbon Dioxide Level 30 mEQ/L (20-30) Anion Gap 13 (5-15) Blood Urea Nitrogen 44 mg/dL (7-23) H Creatinine 1.9 mg/dL (0.7-1.2) H Estimat Glomerular Filtration Rate mL/min (>60) Glucose Level 66 mg/dL (74-106) L Calcium Level 8.5 mg/dL (8.6-10.2) L Troponin I < 0.30 ng/mL (<=0.30) Pro-B-Type Natriuretic Peptide 5691 pg/mL (0-450) H Microbiology Date/Time Source Procedure Growth Status 06/14/16 16:00 Blood Blood Culture - Preliminary NO GROWTH AFTER 24 HOURS Resulted 06/14/16 15:45 Blood Blood Culture - Preliminary NO GROWTH AFTER 24 HOURS Resulted KELLEE MUNGUIA June 16, 2016 07:34
[2016-06-16 08:00] VITALS: BP 137/67
[2016-06-16] MEDS: Torsemide 10mg tab ORAL SCH (08:05)
[2016-06-16] MEDS: Tamsulosin 0.4mg cap ORAL SCH ×2 (08:05→17:11)
[2016-06-16] MEDS: Benzonatate 100mg Perles ORAL SCH ×3 (08:05→17:11)
[2016-06-16] MEDS: Solu-MEDROL 125mg Inj IV SCH ×3 (11:24→23:30)
[2016-06-16] MEDS: Theophylline ER 100mg ORAL SCH ×2 (11:24→21:51)
[2016-06-16 11:32] VITALS: BP 124/62
--- NOTE | 2016-06-16 12:09 | Diagnostic Imaging Report ---
APPROVED REPORT CPT Code: 38780 Present Symptoms Lower Extremity Pain: Bilateral Lower Extremity Edema: Bilateral Shortness of breath Comments: Hx a-fib, CHF, COPD, Diabetes BILATERAL: Imaging reveals a patent deep venous system bilaterally. There is no evidence of thrombus within the femoral, popliteal or tibial segments. The greater saphenous veins are also within normal limits. Doppler indicates normal spontaneous flow within these segments.
--- NOTE | 2016-06-16 12:19 | Pulmonology Progress Note ---
Assessment/Plan Problems: (1) COPD exacerbation (2) Acute encephalopathy (3) Acute respiratory failure (4) Pulmonary edema (5) SANTI (obstructive sleep apnea) (6) COPD (chronic obstructive pulmonary disease) (7) Bradycardia (8) Pulmonary hypertension Assessment/Plan mental status improving kohli start on theophyline and steroids check sputum continue antibiotics Subjective ROS Limited/Unobtainable: No Constitutional: Reports: no symptoms HEENT: Repors: no symptoms Allergies: Coded Allergies: No Known Allergies (Unverified , 06/14/16) Objective Last 24 Hour Vital Signs Date Time Temp Pulse Resp B/P Pulse Ox O2 Delivery O2 Flow Rate FiO2 06/16/16 11:32 97.8 51 14 124/62 94 Nasal Cannula 4.0 06/16/16 10:44 66 18 94 5.0 40 06/16/16 08:45 62 20 92 4.0 36 06/16/16 08:00 97.3 64 14 137/67 95 Nasal Cannula 4.0 06/16/16 07:47 56 06/16/16 07:01 Nasal Cannula 4.0 40 06/16/16 07:01 94 Nasal Cannula 4.0 40 06/16/16 07:01 60 22 94 Facial 4.0 40 06/16/16 05:00 50 23 97 Facial 40 06/16/16 04:00 97.5 64 12 122/74 98 Bi-pap 40 06/16/16 04:00 28 06/16/16 03:41 66 06/16/16 03:23 59 21 96 Facial 40 06/16/16 01:14 60 18 95 Facial 40 06/16/16 00:00 28 06/16/16 00:00 98.0 55 18 139/71 98 Bi-pap 40 06/15/16 23:43 48 06/15/16 23:05 61 27 95 Facial 40 06/15/16 21:26 57 15 97 Facial 40 06/15/16 20:00 97.8 87 15 155/53 99 Bi-pap 40 06/15/16 19:39 52 06/15/16 19:34 Bi-pap 40 06/15/16 19:34 97 Bi-pap 40 06/15/16 19:00 51 15 96 Facial 40 06/15/16 16:00 96.9 54 18 164/74 98 Nasal Cannula 4.0 06/15/16 15:22 60 Intake and Output 06/15/16 06/16/16 19:00 07:00 Intake Total 360 ml 200 ml Balance 360 ml 200 ml Intake Oral 360 ml 200 ml # Voids 3 4 General Appearance: WD/WN HEENT: normocephalic, atraumatic Respiratory/Chest: chest wall non-tender, crackles/rales, expiratory wheezing, inspiratory wheezing Cardiovascular: normal peripheral pulses, normal rate Abdomen: normal bowel sounds Extremities: no cyanosis Skin: no rash, no lesions Microbiology Date/Time Source Procedure Growth Status 06/14/16 16:00 Blood Blood Culture - Preliminary NO GROWTH AFTER 24 HOURS Resulted 06/14/16 15:45 Blood Blood Culture - Preliminary NO GROWTH AFTER 24 HOURS Resulted Laboratory Tests 06/15/16 18:41: Urine Color Pale yellow, Urine Appearance Clear, Urine pH 5, Urine Specific [place] 1.015, Urine Protein Negative, Urine Glucose (UA) Negative, Urine Ketones Negative, Urine Occult Blood Negative, Urine Nitrite Negative, Urine Bilirubin Negative, Urine Urobilinogen Normal, Urine Leukocyte Esterase Negative 06/15/16 18:42: Urine Opiates Screen Negative, Urine Barbiturates Screen Negative, Phencyclidine (PCP) Screen Negative, Urine Amphetamines Screen Negative, Urine Benzodiazepines Screen Negative, Urine Cocaine Screen Negative, Urine Marijuana (THC) Screen Negative 06/16/16 03:20: White Blood Count 3.8L, Red Blood Count 3.99L, Hemoglobin 10.4L, Hematocrit 34.3L, Mean Corpuscular Volume 86, Mean Corpuscular Hemoglobin 26.1L, Mean Corpuscular Hemoglobin Concent 30.4L, Red Cell Distribution Width 18.7H, Platelet Count 137L, Mean Platelet Volume 6.5, Neutrophils (%) (Auto) 56.3, Lymphocytes (%) (Auto) 25.1, Monocytes (%) (Auto) 13.4H, Eosinophils (%) (Auto) 3.9H, Basophils (%) (Auto) 1.4, Prothrombin Time 31.7H, Prothromb Time International Ratio 3.0H, Sodium Level 141, Potassium Level 4.0, Chloride Level 98, Carbon Dioxide Level 30, Anion Gap 13, Blood Urea Nitrogen 44H, Creatinine 1.9H, Estimat Glomerular Filtration Rate , Glucose Level 66L, Calcium Level 8.5L , Troponin I < 0.30, Pro-B-Type Natriuretic Peptide 5691H Current Medications Medications (Trade) Dose Ordered Sig/Nga Route PRN Reason Start Time Stop Time Status Last Admin Dose Admin Acetaminophen (Tylenol) 650 mg Q4H PRN ORAL Fever 06/14/16 17:15 07/14/16 17:14 Albuterol/ Ipratropium (DuoNeb 0.5-3(2.5)mg/3ml) 3 ml Q4H PRN HHN Shortness of Breath 06/14/16 17:15 06/19/16 17:14 Benzonatate (Tessalon Perles) 100 mg THREE TIMES A DAY ORAL 06/15/16 09:00 07/15/16 08:59 06/16/16 08:05 Dextrose (Dextrose 50%) STAT PRN IV Hypoglycemia 06/14/16 17:15 07/14/16 17:14 Guaifenesin (Robitussin) 200 mg Q4H PRN ORAL For Cough 06/14/16 22:30 07/14/16 22:29 06/15/16 13:04 Methylprednisolone Sodium Succinate (Solu-MEDROL) 60 mg EVERY 6 HOURS IV 06/16/16 12:00 07/16/16 11:59 06/16/16 11:24 Nateglinide (Starlix) 120 mg BEFORE MEALS ORAL 06/15/16 06:30 07/15/16 06:29 06/16/16 11:24 Ondansetron HCl (Zofran) 4 mg Q6H PRN IVP Nausea & Vomiting 06/14/16 17:15 07/14/16 17:14 Polyethylene Glycol (Miralax) 17 gm DAILYPRN PRN ORAL Constipation 06/14/16 17:15 07/14/16 17:14 Tamsulosin HCl (Flomax) 0.4 mg TWICE A DAY ORAL 06/15/16 09:00 07/15/16 08:59 06/16/16 08:05 Temazepam (Restoril) 15 mg HSPRN PRN ORAL Insomnia 06/14/16 17:15 06/21/16 17:14 Theophylline (Anthony-Dur) 100 mg EVERY 12 HOURS ORAL 06/16/16 11:00 07/16/16 10:59 06/16/16 11:24 Torsemide (Demadex) 20 mg DAILY ORAL 06/16/16 09:00 07/16/16 08:59 06/16/16 08:05 Tramadol HCl (Ultram) 50 mg Q8H PRN ORAL For Pain 06/14/16 22:30 06/21/16 22:29 Warfarin Sodium (Coumadin per pharmacy) 1 ea DAILY PRN MISC Per rx protocol 06/15/16 20:30 07/15/16 20:29 Warfarin Sodium (Coumadin) 1 mg COUMADIN ONCE ORAL 06/16/16 17:00 06/16/16 17:01 RONAK GOMES June 16, 2016 12:19
--- NOTE | 2016-06-16 12:58 | Neurology Progress Note ---
Interim History Interim History ROS Limited/Unobtainable: No Objective Physical Exam Last Vital Signs Date Time Temp Pulse Resp B/P Pulse Ox O2 Delivery O2 Flow Rate FiO2 06/16/16 11:32 97.8 51 14 124/62 94 Nasal Cannula 4.0 06/16/16 10:44 40 Laboratory Tests Test 06/15/16 18:41 06/15/16 18:42 06/16/16 03:20 Urine Color Pale yellow Urine Appearance Clear Urine pH 5 (4.5-8.0) Urine Specific [place] 1.015 (1.005-1.035) Urine Protein Negative (NEGATIVE) Urine Glucose (UA) Negative (NEGATIVE) Urine Ketones Negative (NEGATIVE) Urine Occult Blood Negative (NEGATIVE) Urine Nitrite Negative (NEGATIVE) Urine Bilirubin Negative (NEGATIVE) Urine Urobilinogen Normal MG/DL (0.0-1.0) Urine Leukocyte Esterase Negative (NEGATIVE) Urine Opiates Screen Negative (NEGATIVE) Urine Barbiturates Screen Negative (NEGATIVE) Phencyclidine (PCP) Screen Negative (NEGATIVE) Urine Amphetamines Screen Negative (NEGATIVE) Urine Benzodiazepines Screen Negative (NEGATIVE) Urine Cocaine Screen Negative (NEGATIVE) Urine Marijuana (THC) Screen Negative (NEGATIVE) White Blood Count 3.8 K/UL (4.8-10.8) L Red Blood Count 3.99 M/UL (4.70-6.10) L Hemoglobin 10.4 G/DL (14.2-18.0) L Hematocrit 34.3 % (42.0-52.0) L Mean Corpuscular Volume 86 FL (80-99) Mean Corpuscular Hemoglobin 26.1 PG (27.0-31.0) L Mean Corpuscular Hemoglobin Concent 30.4 G/DL (32.0-36.0) L Red Cell Distribution Width 18.7 % (11.6-14.8) H Platelet Count 137 K/UL (150-450) L Mean Platelet Volume 6.5 FL (6.5-10.1) Neutrophils (%) (Auto) 56.3 % (45.0-75.0) Lymphocytes (%) (Auto) 25.1 % (20.0-45.0) Monocytes (%) (Auto) 13.4 % (1.0-10.0) H Eosinophils (%) (Auto) 3.9 % (0.0-3.0) H Basophils (%) (Auto) 1.4 % (0.0-2.0) Prothrombin Time 31.7 SEC (9.30-11.50) H Prothromb Time International Ratio 3.0 (0.9-1.1) H Sodium Level 141 mEQ/L (135-145) Potassium Level 4.0 mEQ/L (3.4-4.9) Chloride Level 98 mEQ/L (98-107) Carbon Dioxide Level 30 mEQ/L (20-30) Anion Gap 13 (5-15) Blood Urea Nitrogen 44 mg/dL (7-23) H Creatinine 1.9 mg/dL (0.7-1.2) H Estimat Glomerular Filtration Rate mL/min (>60) Glucose Level 66 mg/dL (74-106) L Calcium Level 8.5 mg/dL (8.6-10.2) L Troponin I < 0.30 ng/mL (<=0.30) Pro-B-Type Natriuretic Peptide 5691 pg/mL (0-450) H Impression/Recommendations Problems: (1) tranasient unresponsiveness ,probably 2/2 acute hypoxemia. r/o nonconvulsive sz activity (2) COPD exacerbation (3) SANTI (obstructive sleep apnea) (4) Acute respiratory failure (5) CHF exacerbation Status: unchanged Recommendations # [id number] JUAN FERRARO June 16, 2016 12:58
[2016-06-16] MEDS: DuoNeb 0.5-3(2.5)mg/3ml neb HHN PRN (13:08)
[2016-06-16 14:23] LABS: THYROID STIMULATING HORMONE 4.42 uIU/mL (0.300-4.500)
--- NOTE | 2016-06-16 16:05 | Wound Care Consultation ---
Wound Assessment Wound Assessment #1: Wound Present on Admission: Yes New Wound: No Status Change of Wound: No Wound Location Body Site Modif: mid Wound Location Body Site: nose Wound Type: pressure ulcer Em Test: Does not Em Pressure Ulcer Stage: deep tissue injury Wound Thickness: Full Thickness Wound Length: 1.5 Wound Width: 2.0 Wound Depth: utd Percent of Wound Purple/Maroon: 100 Wound Drainage Amount: None Wound Drainage Odor: None/Absent Tissue Surrounding Wound: Intact Wound General Appearance: Asymptomatic, Reddened Wound Assessment #2: Wound Number: #2 Wound Present on Admission: Yes New Wound: No Status Change of Wound: No Wound Location Body Site Modif: mid Wound Location Body Site: sacral Wound Type: pressure ulcer Em Test: Does not Em Pressure Ulcer Stage: deep tissue injury Wound Thickness: Full Thickness Wound Length: 3.0 Wound Width: 4.5 Wound Depth: utd Percent of Wound Watts/Red: 50 Percent of Wound Purple/Maroon: 50 Wound Drainage Amount: None Wound Drainage Odor: None/Absent Tissue Surrounding Wound: Intact Wound General Appearance: Asymptomatic, Reddened Wound Comment #1 Bridge of the nose DTI pressure ulcer #2 Sacral SDTI pressure ulcer #3 Scattered open and intact ecchymosis on both upper extremities Recommendation -Open ecchymosis on left and right upper extremities Cleanse with saline, pat dry, apply Adaptic, cover with bordered gauze daily and PRN soiled/dislodged -Local wound care per protocol for DTI on nose and sacral area -Keep clean and dry -Optimize nutrition -Turn and reposition -Heel protectors on both heels -Offload both heels -Low air loss overlay [facility] MAGGY JEFFRIES RN June 16, 2016 16:05
[2016-06-16 16:25] VITALS: BP 133/67
[2016-06-16] MEDS ORDERED: Warfarin Sodium 1mg ORAL ONE (17:00)
[2016-06-16 20:00] VITALS: BP 127/66
--- NOTE | 2016-06-16 23:08 | Consultation ---
DATE OF CONSULTATION: 06/16/2016 NEUROLOGICAL CONSULTATION CONSULTING PHYSICIAN: Miguel Humphrey M.D. HISTORY OF PRESENT ILLNESS: This 85 years man seen in neurological consultation to evaluate the transient episodes of unresponsiveness. The patient has no independent recollection of events stating that he does not know why he is in the hospital. According to medical records, the patient has been out with his for long time. Being unable to drive or ambulate, he was sleeping in the car, but upon arrival home, he was unarousable and he was unable to get out of the car. At this point, paramedics were called to the scene reporting vital signs being stable, blood pressure 142/76, heart rate of 65, and respirations 14. They described him sitting in a car in front of the house in moderate distress, complaining of changes in level of consciousness for at least 30 minutes. His pupils were constricted. There was no evidence of trauma. The patient was unresponsive to pain. Pulse oximetry was 70% on room air. After giving oxygen and Narcan, he became alert and responding to pain. He was brought to emergency room. His vital signs on admission remained stable. His examination revealed [place] Coma Scale of 15. He was wheezing. He has 3+ both lower extremity edema. His laboratory work included hemoglobin 11.7, hematocrit 35.3, and platelets 132,000. Coagulation panel with INR of 3.4 and PTT of 40 seconds. Urinalysis was unremarkable. Toxicology panel was normal. Chemistry panel with BUN of 46, creatinine 2.0, and blood sugar of 107. Elevated total bilirubin 1.3. Normal transaminase. His BNP of 5691. Imaging studies included CT scan of the brain revealing moderate atrophy of the brain with evidence of small vessel disease. There was a left scalp contusion and laceration. Partial right mastoidectomy sign. His chest x-ray, vascular congestion, cardiomegaly, CHF. His 2D echocardiogram, ejection fraction 35% to 40%. No mural thrombi described. Since admission until present, there were no further paroxysmal events noted. PAST MEDICAL HISTORY: History of chronic acute hypoxic and hypercarbic respiratory failure, chronic alveolar hypoventilation syndrome, col pulmonale, severe diastolic heart failure, pulmonary hypertension, chronic respiratory failure, metastatic prostate CA with bilateral hydronephrosis, chronic atrial fibrillation, sick sinus syndrome, obesity, chronic renal insufficiency, and sleep apnea syndrome. In addition, in the last half year, he is unable to ambulate and now complaining of intermittent headaches. Pain in his upper, but predominantly low back pain. Aches and pains in his both lower extremities. MEDICATIONS: Treatment prior to admission included Lupron injections, Starlix, Flomax, torsemide, colchicine, Coumadin, nebulizers, and tramadol for pain. ALLERGIES: None reported. REVIEW OF SYMPTOMS: Hearing loss, frequent headaches, aches and pains in his lower extremities and low back region, but denies shortness of breath. Denies chest pain. No urine or bowel incontinence. Complaints of swelling in both lower extremities. Denies having depression. PHYSICAL EXAMINATION: NEUROLOGIC: Cranial Nerve II: Pupils both responding to light and accommodation. Extraocular movement intact. No nystagmus. CRANIAL NERVE V: Normal corneal responses. CRANIAL NERVE VII: No facial asymmetry. CRANIAL NERVE VIII: Decreased hearing. CRANIAL NERVE IX THROUGH XII: Tongue is in midline. Symmetric palate elevation. MOTOR EXAMINATION: Normal muscle tone and strength in both upper extremities. 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 Both lower extremities with 2+ pitting edema. Venous stasis signs. There are poorly detected dorsal pedis pulses. Strength 5/5 in both upper extremities. Strength 3/5 in both lower extremities. Able to maintain against the gravity only briefly. There is palpable tenderness in both knees and ankles. Deep tendon reflexes depressed, biceps, triceps, brachioradialis, knee and ankle jerks. Plantar response is mute. Sensory examination, slight withdrawal to pin stimulation both arms and legs. Gait not tested. IMPRESSION: 1. This 85 years old man with a history of transient episode of unresponsiveness in the setting of significant respiratory insufficiency, probably representing hypoventilation syndrome. Doubt presence of transient ischemic attack or seizure activities. 2. Hearing loss. 3. Chronic obstructive pulmonary disease exacerbation. 4. Obstructive sleep apnea. 5. History of prostate cancer, metastatic. 6. 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 Rule out spinal stenosis. 7. Anticoagulation. 8. Severe diastolic heart failure. 9. Diabetes type 2 with diabetic polyneuropathy. 10. Chronic renal insufficiency. 11. Obesity. RECOMMENDATIONS: The patient has multiple risk factors for transient unresponsiveness and these include underlying hypoventilation syndrome, obstructive sleep apnea, and severe CHF. There is no clear evidence of nonconvulsive seizure activities. We will obtain electroencephalogram in an attempt to assess any ongoing epileptogenic activities. Check carotid duplex to rule out significant stenosis. Meanwhile, we will continue with the current treatment. Thank you for allowing me to see this interesting patient in neurological consultation. Miguel Humphrey M.D. DR: SAM JOB#: [id number] CC:
[2016-06-17] VITALS: BP 127/62
[2016-06-17 04:00] VITALS: BP 122/65
[2016-06-17 05:26] LABS: MEAN CORPUSCULAR HEMOGLOBIN 26.4 PG (27.0-31.0); MEAN CORPUSCULAR HGB CONC 31.3 G/DL (32.0-36.0); MEAN CORPUSCULAR VOLUME 84 FL (80-99); MEAN PLATELET VOLUME 7.5 FL (6.5-10.1); PLATELET COUNT 120 K/UL (150-450); RED BLOOD COUNT 4.09 M/UL (4.70-6.10); RED CELL DISTRIBUTION WIDTH 18.7 % (11.6-14.8); WHITE BLOOD COUNT 2.6 K/UL (4.8-10.8)
[2016-06-17 05:34] LABS: INR 2.1 (0.9-1.1); PROTHROMBIN TIME 22.1 SEC (9.30-11.50)
[2016-06-17] MEDS: Nateglinide 60mg tab ORAL SCH ×3 (06:42→17:28)
[2016-06-17] MEDS: Solu-MEDROL 125mg Inj IV SCH ×3 (06:42→20:46)
[2016-06-17 07:36] LABS: ANISOCYTOSIS 1+; BAND NEUTROPHILS % (MANUAL) 0 % (0-8); BASOPHILS % (MANUAL) 0 % (0-2); EOSINOPHILS % (MANUAL) 0 % (0-3); HYPOCHROMASIA 1+; LYMPHOCYTES % (MANUAL) 16 % (20-45); NEUTROPHILS % (MANUAL) 83 % (45-75); PLATELET ESTIMATE DECREASED; PLATELET MORPHOLOGY NORMAL; TOTAL CELLS COUNTED 100
[2016-06-17 08:00] VITALS: BP 124/82
[2016-06-17 08:34] LABS: ERYTHROCYTE SEDIMENTATION RATE 57 MM/HR (0-30); PATH BLOOD SMEAR/OMC SENT TO PATHOLOGIST; RETICULOCYTE COUNT 1.3 % (0.0-2.0)
[2016-06-17] MEDS: Benzonatate 100mg Perles ORAL SCH ×3 (08:56→17:28)
[2016-06-17] MEDS: Theophylline ER 100mg ORAL SCH ×2 (08:56→20:46)
[2016-06-17] MEDS: Torsemide 10mg tab ORAL SCH (08:57)
[2016-06-17] MEDS: Tamsulosin 0.4mg cap ORAL SCH ×2 (08:57→17:28)
[2016-06-17 11:47] VITALS: BP 134/67
[2016-06-17] MEDS: DuoNeb 0.5-3(2.5)mg/3ml neb HHN PRN (11:55)
--- NOTE | 2016-06-17 12:49 | Pulmonology Progress Note ---
Assessment/Plan Problems: (1) COPD exacerbation (2) Acute encephalopathy (3) Acute respiratory failure (4) Pulmonary edema (5) SANTI (obstructive sleep apnea) (6) COPD (chronic obstructive pulmonary disease) (7) Bradycardia (8) Pulmonary hypertension Assessment/Plan mental status improving kohli start on theophyline and steroids check sputum continue antibiotics on diuretics lung sounds are better today Subjective ROS Limited/Unobtainable: No Interval Events: totally forgetfull, forgot that he had a conversation with me for 30 min Allergies: Coded Allergies: No Known Allergies (Unverified , 06/14/16) Objective Last 24 Hour Vital Signs Date Time Temp Pulse Resp B/P Pulse Ox O2 Delivery O2 Flow Rate FiO2 06/17/16 11:55 40 06/17/16 11:55 67 18 97 Nasal Cannula 5.0 40 06/17/16 11:47 97.7 55 21 134/67 97 Nasal Cannula 6.0 06/17/16 08:00 97.6 54 22 124/82 95 Nasal Cannula 6.0 06/17/16 08:00 60 06/17/16 06:44 Nasal Cannula 5.0 06/17/16 06:44 96 Nasal Cannula 5.0 40 06/17/16 04:00 97.9 62 18 122/65 95 Nasal Cannula 6.0 06/17/16 03:40 51 06/17/16 03:29 61 18 95 Facial 40 06/17/16 01:02 65 17 94 Facial 40 06/17/16 00:00 59 06/17/16 00:00 97.7 61 18 127/62 95 Bi-pap 40 06/16/16 23:40 67 17 93 Facial 40 06/16/16 20:00 98.2 64 18 127/66 95 Nasal Cannula 6.0 06/16/16 20:00 64 06/16/16 19:15 Nasal Cannula 5.0 06/16/16 19:15 95 Nasal Cannula 5.0 40 06/16/16 16:25 97.8 62 16 133/67 98 Bi-pap 40 06/16/16 15:19 60 06/16/16 15:00 61 13 96 Facial 40 06/16/16 13:08 40 06/16/16 13:08 60 18 92 5.0 40 06/16/16 13:08 60 18 92 Nasal Cannula 5.0 40 Intake and Output 06/16/16 06/17/16 19:00 07:00 Intake Total 240 ml Balance 240 ml Intake Oral 240 ml # Voids 3 2 General Appearance: WD/WN HEENT: normocephalic, atraumatic Respiratory/Chest: chest wall non-tender, lungs clear Cardiovascular: normal peripheral pulses, normal rate Abdomen: normal bowel sounds, soft, non tender Genitourinary: normal external genitalia Extremities: no clubbing Skin: no ulcers Neurologic/Psychiatric: yeast culture operator II-XII grossly normal Lymphatic: no neck adenopathy, no groin adenopathy Musculoskeletal: normal muscle bulk Microbiology Date/Time Source Procedure Growth Status 06/14/16 16:00 Blood Blood Culture - Preliminary NO GROWTH AFTER 48 HOURS Resulted 06/14/16 15:45 Blood Blood Culture - Preliminary NO GROWTH AFTER 48 HOURS Resulted Laboratory Tests 06/16/16 13:25: Ammonia 57, Thyroid Stimulating Hormone (TSH) 4.420 06/17/16 03:45: White Blood Count 2.6L, Red Blood Count 4.09L, Hemoglobin 10.8L, Hematocrit 34.5L, Mean Corpuscular Volume 84, Mean Corpuscular Hemoglobin 26.4L, Mean Corpuscular Hemoglobin Concent 31.3L, Red Cell Distribution Width 18.7H, Platelet Count 120L, Mean Platelet Volume 7.5, Neutrophils (%) (Auto) , Lymphocytes (%) (Auto) , Monocytes (%) (Auto) , Eosinophils (%) (Auto) , Basophils (%) (Auto) , Differential Total Cells Counted 100, Neutrophils % ( Manual) 83H, Lymphocytes % (Manual) 16L, Monocytes % (Manual) 1, Eosinophils % ( Manual) 0, Basophils % (Manual) 0, Band Neutrophils 0, Platelet Estimate DecreasedL, Platelet Morphology Normal, Hypochromasia 1+, Anisocytosis 1+, Erythrocyte Sedimentation Rate 57H, Reticulocyte Count 1.3, Prothrombin Time 22.1H, Prothromb Time International Ratio 2.1H, Activated Partial Thromboplast Time 35H, Iron Level 28L, Total Iron Binding Capacity 343, Percent Iron Saturation 8L, Unsaturated Iron Binding 315, Lactate Dehydrogenase 201, Carcinoembryonic Antigen 2.2, Vitamin B12 Level 1127H, Folate [Pending] Current Medications Medications (Trade) Dose Ordered Sig/Nga Route PRN Reason Start Time Stop Time Status Last Admin Dose Admin Acetaminophen (Tylenol) 650 mg Q4H PRN ORAL Fever 06/14/16 17:15 07/14/16 17:14 Albuterol/ Ipratropium (DuoNeb 0.5-3(2.5)mg/3ml) 3 ml Q4H PRN HHN Shortness of Breath 06/14/16 17:15 06/19/16 17:14 06/17/16 11:55 Benzonatate (Tessalon Perles) 100 mg THREE TIMES A DAY ORAL 06/15/16 09:00 07/15/16 08:59 06/17/16 08:56 Dextrose (Dextrose 50%) STAT PRN IV Hypoglycemia 06/14/16 17:15 07/14/16 17:14 Guaifenesin (Robitussin) 200 mg Q4H PRN ORAL For Cough 06/14/16 22:30 07/14/16 22:29 06/15/16 13:04 Methylprednisolone Sodium Succinate (Solu-MEDROL) 60 mg EVERY 6 HOURS IV 06/16/16 12:00 07/16/16 11:59 06/17/16 11:38 Nateglinide (Starlix) 120 mg BEFORE MEALS ORAL 06/15/16 06:30 07/15/16 06:29 06/17/16 11:38 Ondansetron HCl (Zofran) 4 mg Q6H PRN IVP Nausea & Vomiting 06/14/16 17:15 07/14/16 17:14 Polyethylene Glycol (Miralax) 17 gm DAILYPRN PRN ORAL Constipation 06/14/16 17:15 07/14/16 17:14 Tamsulosin HCl (Flomax) 0.4 mg TWICE A DAY ORAL 06/15/16 09:00 07/15/16 08:59 06/17/16 08:57 Temazepam (Restoril) 15 mg HSPRN PRN ORAL Insomnia 06/14/16 17:15 06/21/16 17:14 06/16/16 23:26 Theophylline (Anthony-Dur) 100 mg EVERY 12 HOURS ORAL 06/16/16 11:00 07/16/16 10:59 06/17/16 08:56 Torsemide (Demadex) 20 mg DAILY ORAL 06/16/16 09:00 07/16/16 08:59 06/17/16 08:57 Tramadol HCl (Ultram) 50 mg Q8H PRN ORAL For Pain 06/14/16 22:30 06/21/16 22:29 Warfarin Sodium (Coumadin per pharmacy) 1 ea DAILY PRN MISC Per rx protocol 06/15/16 20:30 07/15/16 20:29 Warfarin Sodium (Coumadin) 2 mg COUMADIN ONCE ORAL 06/17/16 17:00 06/17/16 17:01 RONAK GOMES June 17, 2016 12:49
--- NOTE | 2016-06-17 13:46 | General Progress Note ---
Progress Note Progress Note [id number] full note dictated CHRISTIAN PHILIP June 17, 2016 13:46
[2016-06-17] MEDS: traMADol 50mg tab ORAL PRN (14:01)
[2016-06-17] MEDS: guaiFENesin 100mg/5ml Liq ud ORAL PRN (14:02)
[2016-06-17 16:27] VITALS: BP 145/66
[2016-06-17] MEDS ORDERED: Warfarin Sodium 1mg ORAL ONE (17:00)
--- NOTE | 2016-06-17 17:42 | Cardiology Progress Note ---
Assessment/Plan Assessment/Plan ams possible co2 narcosis mrobid obesity with alveolar hypoventilation syndrome jose on cpap afib with slow hr has refused pacer implantation chronic coagulopathy with couamdin cm nocturnal hypoxemia iwth pulm htn elevated ca 19-9 cri hyperlipidemia cri however recetn cr 1.3at [facility] 3 mon ago prostate cancer with hydronephrosis copd gout core pulmonale remain awake and responsive cr stable base line 1.3 continue bipap as needed now back on diuretic on Coumadin per pharmacy tele afib no severe eduardo nor sig pauses has pvcs vs abbarency avoid neg chronotropic agents trop seem fine lv dysfunction seems new compared to prior [facility] echo reports all trop neg may need ischemia eval at [facility] when dcd form here with 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 dr navarrete has refused mary for phtn recently off ivf in future once renal fxn stable will consider acei home when stabel Subjective Cardiovascular: Denies: chest pain, lightheadedness Respiratory: Denies: shortness of breath Gastrointestinal/Abdominal: Denies: abdominal pain Genitourinary: Denies: burning Subjective off bipap pendign food has nc but seem mouth breather Objective Last 24 Hour Vital Signs Date Time Temp Pulse Resp B/P Pulse Ox O2 Delivery O2 Flow Rate FiO2 06/17/16 16:27 97.9 83 21 145/66 93 Bi-pap 06/17/16 15:00 97.7 06/17/16 14:15 65 18 94 Facial 40 06/17/16 12:00 59 06/17/16 11:55 40 06/17/16 11:55 67 18 97 Nasal Cannula 5.0 40 06/17/16 11:47 97.7 55 21 134/67 97 Nasal Cannula 6.0 06/17/16 08:00 97.6 54 22 124/82 95 Nasal Cannula 6.0 06/17/16 08:00 60 06/17/16 06:44 Nasal Cannula 5.0 06/17/16 06:44 96 Nasal Cannula 5.0 40 06/17/16 04:00 97.9 62 18 122/65 95 Nasal Cannula 6.0 06/17/16 03:40 51 06/17/16 03:29 61 18 95 Facial 40 06/17/16 01:02 65 17 94 Facial 40 06/17/16 00:00 59 06/17/16 00:00 97.7 61 18 127/62 95 Bi-pap 40 06/16/16 23:40 67 17 93 Facial 40 06/16/16 20:00 98.2 64 18 127/66 95 Nasal Cannula 6.0 06/16/16 20:00 64 06/16/16 19:15 Nasal Cannula 5.0 06/16/16 19:15 95 Nasal Cannula 5.0 40 General Appearance: no apparent distress, alert Neck: no JVD Cardiovascular: irregularly irregular Respiratory/Chest: expiratory wheezing Abdomen: normal bowel sounds, non tender, soft Extremities: moderate edema Intake and Output 06/16/16 06/17/16 19:00 07:00 Intake Total 240 ml Balance 240 ml Intake Oral 240 ml # Voids 3 2 Laboratory Tests Test 06/17/16 03:45 White Blood Count 2.6 K/UL (4.8-10.8) L Red Blood Count 4.09 M/UL (4.70-6.10) L Hemoglobin 10.8 G/DL (14.2-18.0) L Hematocrit 34.5 % (42.0-52.0) L Mean Corpuscular Volume 84 FL (80-99) Mean Corpuscular Hemoglobin 26.4 PG (27.0-31.0) L Mean Corpuscular Hemoglobin Concent 31.3 G/DL (32.0-36.0) L Red Cell Distribution Width 18.7 % (11.6-14.8) H Platelet Count 120 K/UL (150-450) L Mean Platelet Volume 7.5 FL (6.5-10.1) Neutrophils (%) (Auto) % (45.0-75.0) Lymphocytes (%) (Auto) % (20.0-45.0) Monocytes (%) (Auto) % (1.0-10.0) Eosinophils (%) (Auto) % (0.0-3.0) Basophils (%) (Auto) % (0.0-2.0) Differential Total Cells Counted 100 Neutrophils % (Manual) 83 % (45-75) H Lymphocytes % (Manual) 16 % (20-45) L Monocytes % (Manual) 1 % (1-10) Eosinophils % (Manual) 0 % (0-3) Basophils % (Manual) 0 % (0-2) Band Neutrophils 0 % (0-8) Platelet Estimate Decreased L Platelet Morphology Normal Hypochromasia 1+ Anisocytosis 1+ Erythrocyte Sedimentation Rate 57 MM/HR (0-30) H Reticulocyte Count 1.3 % (0.0-2.0) Prothrombin Time 22.1 SEC (9.30-11.50) H Prothromb Time International Ratio 2.1 (0.9-1.1) H Activated Partial Thromboplast Time 35 SEC (23-33) H Iron Level 28 ug/dL (59-158) L Total Iron Binding Capacity 343 ug/dL (250-400) Percent Iron Saturation 8 % (15-50) L Unsaturated Iron Binding 315 ug/dL (112-346) Lactate Dehydrogenase 201 U/L (135-230) Carcinoembryonic Antigen 2.2 ng/mL Vitamin B12 Level 1127 pg/mL (211-946) H Folate Pending KELLEE MUNGUIA June 17, 2016 17:42
--- NOTE | 2016-06-17 20:39 | Electroencephalogram ---
DATE OF PROCEDURE: 06/17/2016 REQUESTING PHYSICIAN: Cristina Escalante M.D. READING PHYSICIAN: Miguel Humphrey M.D. PROCEDURE PERFORMED: Electroencephalogram. HISTORY: This is an 85-year-old man with a transient unresponsiveness, unknown etiology. seizure activity was suggested, and EEG was requested. He is currently treated for hypoxemia, COPD, obstructive sleep apnea, CHF, atrial fibrillation, hypertension, and diabetes. No anticonvulsants given. TECHNIQUE: EEG was done using 18 electrodes, placed scalp to scalp, scalp to ear montages according to 10/20 International System. During the recording, the patient was awake or drowsy, but poorly cooperative. On most wakeful portions of recording, background activity consists of low to medium voltage, 6 to 7 cycles per second theta activity with good response to physiological stimulation noted with eye opening and eye closure. As recording progressed, there was further attenuation of background with disorganization corresponding to sleep stages. There was no asymmetry from side to side. There were no spike or wave activities noted. IMPRESSION: Abnormal EEG, presenting with a mild to moderate diffuse slowing. COMMENT: Above abnormalities are nonspecific findings, may present toxic metabolic or diffuse structural abnormalities. Absence of paroxysmal event on a single recording does not rule out seizure disorder. Miguel Humphrey M.D. DR: SAM JOB#: [id number] CC:
--- NOTE | 2016-06-17 22:39 | Consultation ---
DATE OF CONSULTATION: 06/17/2016 NEPHROLOGY CONSULTATION CONSULTING PHYSICIAN: Alison Bates M.D. REFERRING PHYSICIAN: Cristina Escalante M.D. REASON FOR CONSULTATION: Acute renal failure. HISTORY OF PRESENT ILLNESS: The patient is a very pleasant male with past medical history significant for history of chronic kidney disease stage III, history of hypertension, history of morbid obesity, history of COPD, history of pneumonia, history of chronic sick sinus syndrome and refused pacemaker placement. Apparently, the patient was out of the house for long time with the , later on in the afternoon the was not able to wake the patient up while they were still in the car, apparently the patient's called 911. Upon arrival of the 911, the patient found to have an O2 saturation of 70%. He was placed on 15 liters mask, although his vital signs were okay, but had a blood pressure of 142/72. The patient was admitted in the hospital and found to have renal failure. I was called for management of renal disease and electrolyte imbalance. PAST MEDICAL HISTORY: 1. History of acute renal failure. 2. History of chronic kidney disease. 3. History of chronic respiratory failure. 4. History of congestive heart failure. 5. History of severe tricuspid regurgitation. 6. History of pulmonary hypertension. 7. History of metastasis prostate cancer with bilateral hydronephrosis secondary to metastasis cancer. 8. History of chronic sick sinus syndrome. 9. History of premature ventricular tachycardia. 10. History of gout. 11. History of diabetes. 12. History of hypertension. 13. History of sleep apnea on home continuous positive airway pressure. 14. History of morbid obesity. MEDICATIONS: 1. Lupron every 3 months. 2. 3 times a day. 3. Potassium 20 mg p.o. daily. 4. Vitamin D3. 5. Colchicine 0.6 mg p.r.n. 6. Coumadin. 7. Robitussin p.r.n. REVIEW OF SYSTEMS: General: The patient is alert, awake, in no acute distress. No nausea no vomiting. No fever or chills. Head And Neck: Denies any dysphagia, odynophagia, blurry vision, headache, or neck stiffness. Pulmonary: Complained of shortness of breath, cough and sputum. Cardiovascular: Denies any chest pain or palpitations. Gastrointestinal: No nausea or vomiting. Genitourinary: He has a history of PTCA. Neurologic: Denies any localized weakness or numbness. PHYSICAL EXAMINATION: VITAL SIGNS: The patient has temperature of 97 degrees, blood pressure 122/65, pulse rate of 95, and respiratory rate of 18. HEAD AND NECK: No JVP. No LAD. No thyromegaly. Extraocular movement intact. Pupils are reactive to light and accommodation. LUNGS: Clear to auscultation. CARDIAC: Regular rate and rhythm. S1-S2 no murmur. No rub. ABDOMEN: Soft, nontender, and nondistended. EXTREMITIES: There is 2 to 3+ edema. No clubbing. No cyanosis. LABORATORY STUDIES: The patient had WBC count of 2.6, hemoglobin of 10.8, hematocrit of 34, and platelet count of 120,000. Chemistry on admission revealed sodium of 143, potassium 3.9, chloride 103, bicarbonate 28, BUN 46, creatinine 1.9, glucose of 78, and calcium of 8.7. AST of 21, ALT of 8, and alkaline phosphorus of 127. Urine revealed specific gravity of 1.005, pH of 5, no WBC, and no RBC. INR is 2.1. ASSESSMENT: 1. Acute renal failure. The etiology of acute renal failure is acute tubular necrosis or cardiorenal syndrome. 2. Chronic kidney disease. 3. Renal osteodystrophy. 4. Hypertension. 5. Diabetes. PLAN: Plan for the patient is to obtain: 1. Random urine protein creatinine ratio to calculate the proteinuria. 2. Check the urine sodium and creatinine to calculate fractional excretion of sodium. 3. Ultrasound of the kidney to evaluate the kidney size. 4. I would check the hemoglobin A1c. Recommended A1c for this patient is 6 to 7. 5. Check the lipid profile. 6. Monitoring intakes and outputs. 7. Avoid any NSAIDs and nephrotoxic medications. Alison Bates M.D. DR: MARLO JOB#: [id number] CC:
[2016-06-18] VITALS: BP 138/72
[2016-06-18 04:00] VITALS: BP 140/70
[2016-06-18 06:22] LABS: MEAN CORPUSCULAR HEMOGLOBIN 26.2 PG (27.0-31.0); MEAN CORPUSCULAR HGB CONC 30.8 G/DL (32.0-36.0); MEAN CORPUSCULAR VOLUME 85 FL (80-99); MEAN PLATELET VOLUME 7.1 FL (6.5-10.1); PLATELET COUNT 134 K/UL (150-450); RED CELL DISTRIBUTION WIDTH 18.7 % (11.6-14.8); WHITE BLOOD COUNT 8.5 K/UL (4.8-10.8)
[2016-06-18] MEDS: Nateglinide 60mg tab ORAL SCH ×3 (06:22→18:16)
[2016-06-18 06:35] LABS: ALANINE AMINOTRANSFERASE 12 U/L (3-41); ALBUMIN/GLOBULIN RATIO 0.7 (1.0-2.7); ANION GAP 13 (5-15); ASPARTATE AMINO TRANSFERASE 26 U/L (5-40); CALCIUM 8.9 mg/dL (8.6-10.2); CARBON DIOXIDE 29 mEQ/L (20-30); CHLORIDE 97 mEQ/L (98-107); HEMOLYSIS 1; POTASSIUM 4.4 mEQ/L (3.4-4.9); SODIUM 139 mEQ/L (135-145); TOTAL PROTEIN 7.7 g/dL (6.6-8.7)
[2016-06-18 06:46] LABS: INR 2.3 (0.9-1.1); PROTHROMBIN TIME 23.8 SEC (9.30-11.50)
[2016-06-18 07:06] LABS: MAGNESIUM 2.4 mg/dL (1.7-2.5); PHOSPHORUS 4.4 mg/dL (2.5-4.8)
[2016-06-18 08:00] VITALS: BP 130/72
[2016-06-18] MEDS: Benzonatate 100mg Perles ORAL SCH ×3 (09:43→18:15)
[2016-06-18] MEDS: Solu-MEDROL 125mg Inj IV SCH ×2 (09:43→21:03)
[2016-06-18] MEDS: Theophylline ER 100mg ORAL SCH ×2 (09:44→21:01)
[2016-06-18] MEDS: Torsemide 10mg tab ORAL SCH (09:44)
[2016-06-18] MEDS: Tamsulosin 0.4mg cap ORAL SCH ×2 (09:44→18:16)
[2016-06-18] MEDS: traMADol 50mg tab ORAL PRN ×2 (09:45→21:02)
--- NOTE | 2016-06-18 09:59 | Diagnostic Imaging Report ---
Indication: Acute renal failure Technique: Renal ultrasound Comparison: 06/14/16 Findings: Examination is technically limited with suboptimal imaging of the kidneys. Moderate bilateral hydronephrosis is again present. Bilateral renal probable cysts are again seen. The bladder is distended. The patient was not able to void at this time. Ascites is present. The visualized IVC is unremarkable. Impression: Technically limited examination with suboptimal imaging of the kidneys. Persistence of moderate bilateral hydronephrosis. Moderate bladder distention and the patient unable to void at this time. Boggs catheter should be considered. Bilateral renal cysts. Ascites.
[2016-06-18 10:21] LABS: ANISOCYTOSIS 2+; BAND NEUTROPHILS % (MANUAL) 0 % (0-8); BASOPHILS % (MANUAL) 0 % (0-2); EOSINOPHILS % (MANUAL) 0 % (0-3); HYPOCHROMASIA 1+; LYMPHOCYTES % (MANUAL) 6 % (20-45); NEUTROPHILS % (MANUAL) 91 % (45-75); PLATELET ESTIMATE DECREASED; PLATELET MORPHOLOGY NORMAL; TOTAL CELLS COUNTED 100
--- NOTE | 2016-06-18 10:45 | Diagnostic Imaging Report ---
Indication: Dyspnea Technique: XRAY CHEST 1 V Comparison: 06/15/16 Findings: Cardiomediastinal silhouette is stable. Pulmonary vascular congestion and interstitial edema are again present. Small bilateral pleural effusions are seen, right greater than left. Osseous structures are stable. Impression: No significant change from 06/15/16.
[2016-06-18 12:00] VITALS: BP 133/68
--- NOTE | 2016-06-18 12:53 | Pulmonology Progress Note ---
Assessment/Plan Problems: (1) Pulmonary edema (2) COPD exacerbation (3) Acute encephalopathy (4) Acute respiratory failure (5) SANTI (obstructive sleep apnea) (6) COPD (chronic obstructive pulmonary disease) (7) Bradycardia (8) Pulmonary hypertension Assessment/Plan mental status improving kohli start on theophyline and steroids check sputum continue antibiotics on diuretics, add lasix drip lung sounds are worse again today Subjective ROS Limited/Unobtainable: No Interval Events: awake, still short of breath Allergies: Coded Allergies: No Known Allergies (Unverified , 06/14/16) Objective Last 24 Hour Vital Signs Date Time Temp Pulse Resp B/P Pulse Ox O2 Delivery O2 Flow Rate FiO2 06/18/16 12:46 61 14 95 06/18/16 10:47 63 18 94 06/18/16 10:44 98.1 06/18/16 09:00 62 16 95 06/18/16 08:00 97.2 52 18 130/72 96 Nasal Cannula 2.0 06/18/16 08:00 56 06/18/16 06:46 Bi-pap 40 06/18/16 06:46 96 Bi-pap 40 06/18/16 06:44 65 18 96 Facial 40 06/18/16 05:09 54 16 96 Facial 40 06/18/16 04:00 62 06/18/16 04:00 98.1 61 19 140/70 96 Nasal Cannula 5.0 06/18/16 00:00 56 06/18/16 00:00 97.9 59 18 138/72 94 06/17/16 20:16 97.3 63 18 92 Nasal Cannula 2.0 06/17/16 20:00 59 06/17/16 19:20 Nasal Cannula 5.0 06/17/16 19:20 93 Nasal Cannula 5.0 40 06/17/16 16:27 97.9 83 21 145/66 93 Bi-pap 06/17/16 16:00 59 06/17/16 14:15 65 18 94 Facial 40 Intake and Output 06/17/16 06/18/16 19:00 07:00 Intake Total 300 ml Balance 300 ml Intake Oral 300 ml # Voids 3 3 General Appearance: WD/WN HEENT: normocephalic, atraumatic Respiratory/Chest: chest wall non-tender, accessory muscle use, crackles/rales Cardiovascular: normal peripheral pulses, normal rate Abdomen: normal bowel sounds, no organomegaly, no scars Genitourinary: normal external genitalia Extremities: no clubbing Skin: no rash, no ulcers Musculoskeletal: normal muscle bulk Laboratory Tests 06/18/16 05:02: White Blood Count 8.5#, Red Blood Count 4.20L, Hemoglobin 11.0L, Hematocrit 35.8L, Mean Corpuscular Volume 85, Mean Corpuscular Hemoglobin 26.2L, Mean Corpuscular Hemoglobin Concent 30.8L, Red Cell Distribution Width 18.7H, Platelet Count 134L, Mean Platelet Volume 7.1, Neutrophils (%) (Auto) , Lymphocytes (%) (Auto) , Monocytes (%) (Auto) , Eosinophils (%) (Auto) , Basophils (%) (Auto) , Differential Total Cells Counted 100, Neutrophils % ( Manual) 91H, Lymphocytes % (Manual) 6L, Monocytes % (Manual) 3, Eosinophils % ( Manual) 0, Basophils % (Manual) 0, Band Neutrophils 0, Platelet Estimate DecreasedL, Platelet Morphology Normal, Hypochromasia 1+, Anisocytosis 2+, Prothrombin Time 23.8H, Prothromb Time International Ratio 2.3H, Sodium Level 139, Potassium Level 4.4, Chloride Level 97L, Carbon Dioxide Level 29, Anion Gap 13, Blood Urea Nitrogen 59H, Creatinine 2.0H, Estimat Glomerular Filtration Rate , Glucose Level 160H, Calcium Level 8.9, Phosphorus Level 4.4, Magnesium Level 2.4, Total Bilirubin 0.9, Aspartate Amino Transf (AST/SGOT) 26, Alanine Aminotransferase (ALT/SGPT) 12, Alkaline Phosphatase 131H, Pro-B-Type Natriuretic Peptide 8917H, Total Protein 7.7, Albumin 3.4L, Globulin 4.3, Albumin/Globulin Ratio 0.7L Current Medications Medications (Trade) Dose Ordered Sig/Nga Route PRN Reason Start Time Stop Time Status Last Admin Dose Admin Acetaminophen (Tylenol) 650 mg Q4H PRN ORAL Fever 06/14/16 17:15 07/14/16 17:14 Albuterol/ Ipratropium (DuoNeb 0.5-3(2.5)mg/3ml) 3 ml Q4H PRN HHN Shortness of Breath 06/14/16 17:15 06/19/16 17:14 06/17/16 11:55 Benzonatate (Tessalon Perles) 100 mg THREE TIMES A DAY ORAL 06/15/16 09:00 07/15/16 08:59 06/18/16 12:44 Dextrose (Dextrose 50%) STAT PRN IV Hypoglycemia 06/14/16 17:15 07/14/16 17:14 Guaifenesin (Robitussin) 200 mg Q4H PRN ORAL For Cough 06/14/16 22:30 07/14/16 22:29 06/17/16 14:02 Methylprednisolone Sodium Succinate (Solu-MEDROL) 60 mg EVERY 12 HOURS IV 06/17/16 21:00 07/17/16 20:59 06/18/16 09:43 Nateglinide (Starlix) 120 mg BEFORE MEALS ORAL 06/15/16 06:30 07/15/16 06:29 06/18/16 12:10 Ondansetron HCl (Zofran) 4 mg Q6H PRN IVP Nausea & Vomiting 06/14/16 17:15 07/14/16 17:14 Polyethylene Glycol (Miralax) 17 gm DAILYPRN PRN ORAL Constipation 06/14/16 17:15 07/14/16 17:14 Tamsulosin HCl (Flomax) 0.4 mg TWICE A DAY ORAL 06/15/16 09:00 07/15/16 08:59 06/18/16 09:44 Temazepam (Restoril) 15 mg HSPRN PRN ORAL Insomnia 06/14/16 17:15 06/21/16 17:14 06/17/16 23:56 Theophylline (Anthony-Dur) 100 mg EVERY 12 HOURS ORAL 06/16/16 11:00 07/16/16 10:59 06/18/16 09:44 Torsemide (Demadex) 20 mg DAILY ORAL 06/16/16 09:00 07/16/16 08:59 06/18/16 09:44 Tramadol HCl (Ultram) 50 mg Q8H PRN ORAL For Pain 06/14/16 22:30 06/21/16 22:29 06/18/16 09:45 Warfarin Sodium (Coumadin per pharmacy) 1 ea DAILY PRN MISC Per rx protocol 06/15/16 20:30 07/15/16 20:29 Warfarin Sodium (Coumadin) 2 mg COUMADIN ONCE ORAL 06/18/16 17:00 06/18/16 17:01 RONAK GOMES June 18, 2016 12:53
[2016-06-18 16:00] VITALS: BP 142/72
--- NOTE | 2016-06-18 16:34 | Nephrology Progress Note ---
Assessment/Plan Assessment 1. Acute renal failure. The etiology of acute renal failure is acute tubular necrosis or cardiorenal syndrome. 2. Chronic kidney disease. 3. Renal osteodystrophy. 4. Hypertension. 5. Diabetes. Plan plan to place [place] cath based on the us of kidney pt has urinary retention monitoring renal function replace electrolyte as need it monitoring in and out put continue lasix daily wt Subjective Constitutional: Reports: no symptoms HEENT: Reports: no symptoms Genitourinary: Reports: no symptoms Neurologic/Psychiatric: Reports: no symptoms Subjective alert and awake still c/o sob Objective Objective Last 24 Hour Vital Signs Date Time Temp Pulse Resp B/P Pulse Ox O2 Delivery O2 Flow Rate FiO2 06/18/16 14:36 59 18 93 06/18/16 12:46 61 14 95 06/18/16 12:00 97.2 88 24 133/68 96 Nasal Cannula 2.0 06/18/16 10:47 63 18 94 06/18/16 10:44 98.1 06/18/16 09:00 62 16 95 06/18/16 08:00 97.2 52 18 130/72 96 Nasal Cannula 2.0 06/18/16 08:00 56 06/18/16 06:46 Bi-pap 40 06/18/16 06:46 96 Bi-pap 40 06/18/16 06:44 65 18 96 Facial 40 06/18/16 05:09 54 16 96 Facial 40 06/18/16 04:00 62 06/18/16 04:00 98.1 61 19 140/70 96 Nasal Cannula 5.0 06/18/16 00:00 56 06/18/16 00:00 97.9 59 18 138/72 94 06/17/16 20:16 97.3 63 18 92 Nasal Cannula 2.0 06/17/16 20:00 59 06/17/16 19:20 Nasal Cannula 5.0 06/17/16 19:20 93 Nasal Cannula 5.0 40 06/17/16 16:27 97.9 83 21 145/66 93 Bi-pap Intake and Output 06/17/16 06/18/16 19:00 07:00 Intake Total 300 ml Balance 300 ml Intake Oral 300 ml # Voids 3 3 Laboratory Tests 06/18/16 05:02: White Blood Count 8.5#, Red Blood Count 4.20L, Hemoglobin 11.0L, Hematocrit 35.8L, Mean Corpuscular Volume 85, Mean Corpuscular Hemoglobin 26.2L, Mean Corpuscular Hemoglobin Concent 30.8L, Red Cell Distribution Width 18.7H, Platelet Count 134L, Mean Platelet Volume 7.1, Neutrophils (%) (Auto) , Lymphocytes (%) (Auto) , Monocytes (%) (Auto) , Eosinophils (%) (Auto) , Basophils (%) (Auto) , Differential Total Cells Counted 100, Neutrophils % ( Manual) 91H, Lymphocytes % (Manual) 6L, Monocytes % (Manual) 3, Eosinophils % ( Manual) 0, Basophils % (Manual) 0, Band Neutrophils 0, Platelet Estimate DecreasedL, Platelet Morphology Normal, Hypochromasia 1+, Anisocytosis 2+, Prothrombin Time 23.8H, Prothromb Time International Ratio 2.3H, Sodium Level 139, Potassium Level 4.4, Chloride Level 97L, Carbon Dioxide Level 29, Anion Gap 13, Blood Urea Nitrogen 59H, Creatinine 2.0H, Estimat Glomerular Filtration Rate , Glucose Level 160H, Calcium Level 8.9, Phosphorus Level 4.4, Magnesium Level 2.4, Total Bilirubin 0.9, Aspartate Amino Transf (AST/SGOT) 26, Alanine Aminotransferase (ALT/SGPT) 12, Alkaline Phosphatase 131H, Pro-B-Type Natriuretic Peptide 8917H, Total Protein 7.7, Albumin 3.4L, Globulin 4.3, Albumin/Globulin Ratio 0.7L Height (Feet): 6 Height (Inches): 0.00 Weight (Pounds): 278 Objective HEAD AND NECK: No JVP. No LAD. No thyromegaly. Extraocular movement intact. Pupils are reactive to light and accommodation. LUNGS: Clear to auscultation. CARDIAC: Regular rate and rhythm. S1-S2 no murmur. No rub. ABDOMEN: Soft, nontender, and nondistended. EXTREMITIES: There is 2 to 3+ edema. No clubbing. No cyanosis. CHRISTIAN PHILIP June 18, 2016 16:33
[2016-06-18] MEDS ORDERED: Warfarin Sodium 2mg ORAL ONE (17:00)
--- NOTE | 2016-06-18 17:43 | Cardiology Progress Note ---
Assessment/Plan Assessment/Plan the patient started on IV Furosemide will follow his HR is slow, but BP is stable Subjective Subjective the patient repots dyspnea and cough no chest pain, but feels "lousy" no change from yesterday Objective Last 24 Hour Vital Signs Date Time Temp Pulse Resp B/P Pulse Ox O2 Delivery O2 Flow Rate FiO2 06/18/16 16:44 62 16 94 06/18/16 16:00 59 06/18/16 16:00 97.7 59 20 142/72 92 Nasal Cannula 2.0 06/18/16 14:36 59 18 93 06/18/16 12:46 61 14 95 06/18/16 12:00 97.2 88 24 133/68 96 Nasal Cannula 2.0 06/18/16 12:00 57 06/18/16 10:47 63 18 94 06/18/16 10:44 98.1 06/18/16 09:00 62 16 95 06/18/16 08:00 97.2 52 18 130/72 96 Nasal Cannula 2.0 06/18/16 08:00 56 06/18/16 06:46 Bi-pap 40 06/18/16 06:46 96 Bi-pap 40 06/18/16 06:44 65 18 96 Facial 40 06/18/16 05:09 54 16 96 Facial 40 06/18/16 04:00 62 06/18/16 04:00 98.1 61 19 140/70 96 Nasal Cannula 5.0 06/18/16 00:00 56 06/18/16 00:00 97.9 59 18 138/72 94 06/17/16 20:16 97.3 63 18 92 Nasal Cannula 2.0 06/17/16 20:00 59 06/17/16 19:20 Nasal Cannula 5.0 06/17/16 19:20 93 Nasal Cannula 5.0 40 General Appearance: other - morbidly obese, flushed and breathing heavily EENT: PERRL/EOMI Neck: JVD Rhythm: Afib Cardiovascular: bradycardia Respiratory/Chest: accessory muscle use, rhonchi - bilaterally Abdomen: soft Extremities: trace edema Intake and Output 06/17/16 06/18/16 19:00 07:00 Intake Total 300 ml Balance 300 ml Intake Oral 300 ml # Voids 3 3 Laboratory Tests Test 06/18/16 05:02 White Blood Count 8.5 K/UL (4.8-10.8) # Red Blood Count 4.20 M/UL (4.70-6.10) L Hemoglobin 11.0 G/DL (14.2-18.0) L Hematocrit 35.8 % (42.0-52.0) L Mean Corpuscular Volume 85 FL (80-99) Mean Corpuscular Hemoglobin 26.2 PG (27.0-31.0) L Mean Corpuscular Hemoglobin Concent 30.8 G/DL (32.0-36.0) L Red Cell Distribution Width 18.7 % (11.6-14.8) H Platelet Count 134 K/UL (150-450) L Mean Platelet Volume 7.1 FL (6.5-10.1) Neutrophils (%) (Auto) % (45.0-75.0) Lymphocytes (%) (Auto) % (20.0-45.0) Monocytes (%) (Auto) % (1.0-10.0) Eosinophils (%) (Auto) % (0.0-3.0) Basophils (%) (Auto) % (0.0-2.0) Differential Total Cells Counted 100 Neutrophils % (Manual) 91 % (45-75) H Lymphocytes % (Manual) 6 % (20-45) L Monocytes % (Manual) 3 % (1-10) Eosinophils % (Manual) 0 % (0-3) Basophils % (Manual) 0 % (0-2) Band Neutrophils 0 % (0-8) Platelet Estimate Decreased L Platelet Morphology Normal Hypochromasia 1+ Anisocytosis 2+ Prothrombin Time 23.8 SEC (9.30-11.50) H Prothromb Time International Ratio 2.3 (0.9-1.1) H Sodium Level 139 mEQ/L (135-145) Potassium Level 4.4 mEQ/L (3.4-4.9) Chloride Level 97 mEQ/L (98-107) L Carbon Dioxide Level 29 mEQ/L (20-30) Anion Gap 13 (5-15) Blood Urea Nitrogen 59 mg/dL (7-23) H Creatinine 2.0 mg/dL (0.7-1.2) H Estimat Glomerular Filtration Rate mL/min (>60) Glucose Level 160 mg/dL (74-106) H Calcium Level 8.9 mg/dL (8.6-10.2) Phosphorus Level 4.4 mg/dL (2.5-4.8) Magnesium Level 2.4 mg/dL (1.7-2.5) Total Bilirubin 0.9 mg/dL (0.0-1.2) Aspartate Amino Transf (AST/SGOT) 26 U/L (5-40) Alanine Aminotransferase (ALT/SGPT) 12 U/L (3-41) Alkaline Phosphatase 131 U/L (40-129) H Pro-B-Type Natriuretic Peptide 8917 pg/mL (0-450) H Total Protein 7.7 g/dL (6.6-8.7) Albumin 3.4 g/dL (3.5-5.2) L Globulin 4.3 g/dL Albumin/Globulin Ratio 0.7 (1.0-2.7) L LUCILLE DURON June 18, 2016 17:43
[2016-06-18 20:00] VITALS: BP 153/86
[2016-06-18 20:43] LABS: CREATININE, RANDOM URINE 58.2 mg/dL
[2016-06-19] VITALS: BP 131/51
[2016-06-19 04:00] VITALS: BP 145/70
[2016-06-19 05:31] LABS: ALANINE AMINOTRANSFERASE 15 U/L (3-41); ALBUMIN/GLOBULIN RATIO 0.8 (1.0-2.7); ANION GAP 12 (5-15); ASPARTATE AMINO TRANSFERASE 26 U/L (5-40); CALCIUM 8.8 mg/dL (8.6-10.2); CARBON DIOXIDE 31 mEQ/L (20-30); CHLORIDE 97 mEQ/L (98-107); CREATININE 1.8 mg/dL (0.7-1.2); HEMOLYSIS 4; MAGNESIUM 2.3 mg/dL (1.7-2.5); POTASSIUM 4.2 mEQ/L (3.4-4.9); SODIUM 140 mEQ/L (135-145)
[2016-06-19] MEDS: Nateglinide 60mg tab ORAL SCH ×2 (06:27→13:52)
[2016-06-19 08:00] VITALS: BP 112/55
[2016-06-19 08:26] LABS: INR 2.8 (0.9-1.1); PROTHROMBIN TIME 29.1 SEC (9.30-11.50)
[2016-06-19] MEDS: Theophylline ER 100mg ORAL SCH ×2 (09:57→21:09)
[2016-06-19] MEDS: Solu-MEDROL 125mg Inj IV SCH ×2 (09:57→21:10)
[2016-06-19] MEDS: Torsemide 10mg tab ORAL SCH (09:57)
[2016-06-19] MEDS: Tamsulosin 0.4mg cap ORAL SCH ×2 (09:58→17:32)
[2016-06-19] MEDS: Benzonatate 100mg Perles ORAL SCH ×3 (09:58→17:32)
[2016-06-19 12:00] VITALS: BP 136/69
--- NOTE | 2016-06-19 12:54 | Pulmonology Progress Note ---
Assessment/Plan Problems: (1) Pulmonary edema (2) COPD exacerbation (3) Acute encephalopathy (4) Acute respiratory failure (5) SANTI (obstructive sleep apnea) (6) COPD (chronic obstructive pulmonary disease) (7) Bradycardia (8) Pulmonary hypertension (9) Hydronephrosis Assessment/Plan mental status improving kohli start on theophyline and steroids check sputum continue antibiotics on diuretics, add lasix drip check electrolytes Subjective ROS Limited/Unobtainable: No Interval Events: still short of breath, slightly better Allergies: Coded Allergies: No Known Allergies (Unverified , 06/14/16) Objective Last 24 Hour Vital Signs Date Time Temp Pulse Resp B/P Pulse Ox O2 Delivery O2 Flow Rate FiO2 06/19/16 10:00 61 14 97 06/19/16 09:05 62 18 96 Facial 40 06/19/16 08:00 96.8 52 14 112/55 98 Bi-pap 40 06/19/16 07:51 58 14 98 06/19/16 06:53 Bi-pap 40 06/19/16 06:53 96 Bi-pap 40 06/19/16 06:53 59 16 96 Facial 40 06/19/16 05:12 53 14 96 Facial 40 06/19/16 04:00 97.2 56 16 145/70 96 Nasal Cannula 06/19/16 04:00 58 06/19/16 03:29 58 20 98 Facial 40 06/19/16 01:37 55 20 98 Facial 40 06/19/16 00:00 97.2 56 16 131/51 96 Nasal Cannula 06/19/16 00:00 56 06/18/16 23:06 59 20 97 Facial 40 06/18/16 21:19 54 18 95 Facial 40 06/18/16 20:00 62 06/18/16 20:00 97.5 63 20 153/86 94 Nasal Cannula 06/18/16 19:23 90 Nasal Cannula 5.0 40 06/18/16 19:23 Nasal Cannula 5.0 40 06/18/16 16:44 62 16 94 06/18/16 16:00 59 06/18/16 16:00 97.7 59 20 142/72 92 Nasal Cannula 2.0 06/18/16 14:36 59 18 93 Intake and Output 06/18/16 06/19/16 19:00 07:00 Intake Total 780 ml 390 ml Output Total 400 ml 1850 ml Balance 380 ml -1460 ml Intake Oral 770 ml 300 ml IV Total 10 ml 90 ml Output Urine Total 400 ml 1850 ml General Appearance: WD/WN HEENT: normocephalic, atraumatic Respiratory/Chest: chest wall non-tender, lungs clear Cardiovascular: normal peripheral pulses, normal rate Abdomen: normal bowel sounds, soft, non tender Extremities: no cyanosis Skin: no rash Laboratory Tests 06/18/16 20:00: Urine Eosinophils 0%, Urine Random Creatinine [Pending], Urine Random Microalbumin [Pending], Urine Random Total Protein 12, Urine Creatinine 58.2, Urine Microalbumin/Creatinine Ratio [Pending] 06/19/16 04:00: Prothrombin Time 29.1H, Prothromb Time International Ratio 2.8H 06/19/16 05:00: Sodium Level 140, Potassium Level 4.2, Chloride Level 97L, Carbon Dioxide Level 31H, Anion Gap 12, Blood Urea Nitrogen 63H, Creatinine 1.8H, Estimat Glomerular Filtration Rate , Glucose Level 152H, Calcium Level 8.8, Phosphorus Level 4.0, Magnesium Level 2.3, Total Bilirubin 0.8, Aspartate Amino Transf (AST/SGOT) 26, Alanine Aminotransferase (ALT/SGPT) 15, Alkaline Phosphatase 114, Total Protein 7.0, Albumin 3.3L, Globulin 3.7, Albumin/Globulin Ratio 0.8L Current Medications Medications (Trade) Dose Ordered Sig/Nga Route PRN Reason Start Time Stop Time Status Last Admin Dose Admin Acetaminophen (Tylenol) 650 mg Q4H PRN ORAL Fever 06/14/16 17:15 07/14/16 17:14 Albuterol/ Ipratropium (DuoNeb 0.5-3(2.5)mg/3ml) 3 ml Q4H PRN HHN Shortness of Breath 06/14/16 17:15 06/19/16 17:14 06/17/16 11:55 Benzonatate (Tessalon Perles) 100 mg THREE TIMES A DAY ORAL 06/15/16 09:00 07/15/16 08:59 06/19/16 09:58 Dextrose (Dextrose 50%) STAT PRN IV Hypoglycemia 06/14/16 17:15 07/14/16 17:14 Furosemide/ Dextrose (Lasix/D5W) 100 ml @ 10 mls/hr Q10H IV 06/18/16 14:00 07/18/16 13:59 06/19/16 09:59 Guaifenesin (Robitussin) 200 mg Q4H PRN ORAL For Cough 06/14/16 22:30 07/14/16 22:29 06/17/16 14:02 Methylprednisolone Sodium Succinate 60 mg 60 mg EVERY 12 HOURS IV 06/17/16 21:00 07/17/16 20:59 06/19/16 09:57 Nateglinide (Starlix) 120 mg BEFORE MEALS ORAL 06/15/16 06:30 07/15/16 06:29 06/19/16 06:27 Ondansetron HCl (Zofran) 4 mg Q6H PRN IVP Nausea & Vomiting 06/14/16 17:15 07/14/16 17:14 Polyethylene Glycol (Miralax) 17 gm DAILYPRN PRN ORAL Constipation 06/14/16 17:15 07/14/16 17:14 Tamsulosin HCl (Flomax) 0.4 mg TWICE A DAY ORAL 06/15/16 09:00 07/15/16 08:59 06/19/16 09:58 Temazepam (Restoril) 15 mg HSPRN PRN ORAL Insomnia 06/14/16 17:15 06/21/16 17:14 06/17/16 23:56 Theophylline (Anthony-Dur) 100 mg EVERY 12 HOURS ORAL 06/16/16 11:00 07/16/16 10:59 06/19/16 09:57 Torsemide (Demadex) 20 mg DAILY ORAL 06/16/16 09:00 07/16/16 08:59 06/19/16 09:57 Tramadol HCl (Ultram) 50 mg Q8H PRN ORAL For Pain 06/14/16 22:30 06/21/16 22:29 06/18/16 21:02 Warfarin Sodium (Coumadin per pharmacy) 1 ea DAILY PRN MISC Per rx protocol 06/15/16 20:30 07/15/16 20:29 RONAK GOMES June 19, 2016 12:54
[2016-06-19 16:00] VITALS: BP 139/77
--- NOTE | 2016-06-19 16:13 | Cardiology Progress Note ---
Assessment/Plan Assessment/Plan noted non sust. V tach this am, asymptomatic his electrolytes arre stable consider defibrillator, but patient refused pacemaker in the past Subjective Subjective feels better today, less dyspnea Objective Last 24 Hour Vital Signs Date Time Temp Pulse Resp B/P Pulse Ox O2 Delivery O2 Flow Rate FiO2 06/19/16 12:00 97.2 58 18 136/69 96 Nasal Cannula 2.0 06/19/16 12:00 58 06/19/16 10:00 61 14 97 06/19/16 09:05 62 18 96 Facial 40 06/19/16 08:00 96.8 52 14 112/55 98 Bi-pap 40 06/19/16 08:00 54 06/19/16 07:51 58 14 98 06/19/16 06:53 Bi-pap 40 06/19/16 06:53 96 Bi-pap 40 06/19/16 06:53 59 16 96 Facial 40 06/19/16 05:12 53 14 96 Facial 40 06/19/16 04:00 97.2 56 16 145/70 96 Nasal Cannula 06/19/16 04:00 58 06/19/16 03:29 58 20 98 Facial 40 06/19/16 01:37 55 20 98 Facial 40 06/19/16 00:00 97.2 56 16 131/51 96 Nasal Cannula 06/19/16 00:00 56 06/18/16 23:06 59 20 97 Facial 40 06/18/16 21:19 54 18 95 Facial 40 06/18/16 20:00 62 06/18/16 20:00 97.5 63 20 153/86 94 Nasal Cannula 06/18/16 19:23 90 Nasal Cannula 5.0 40 06/18/16 19:23 Nasal Cannula 5.0 40 06/18/16 16:44 62 16 94 General Appearance: moderate distress EENT: other - face erythema Neck: JVD Rhythm: PVCs, Afib, VT - non sustaines Cardiovascular: bradycardia, other - PVC Respiratory/Chest: crackles/rales, rhonchi - bilaterally Abdomen: distended, other - very obese Extremities: moderate edema Intake and Output 06/18/16 06/19/16 19:00 07:00 Intake Total 780 ml 390 ml Output Total 400 ml 1850 ml Balance 380 ml -1460 ml Intake Oral 770 ml 300 ml IV Total 10 ml 90 ml Output Urine Total 400 ml 1850 ml Laboratory Tests Test 06/18/16 20:00 06/19/16 04:00 06/19/16 05:00 Urine Eosinophils 0% Urine Random Creatinine Pending Urine Random Microalbumin Pending Urine Random Total Protein 12 mg/dL Urine Creatinine 58.2 mg/dL Urine Microalbumin/Creatinine Ratio Pending Prothrombin Time 29.1 SEC (9.30-11.50) H Prothromb Time International Ratio 2.8 (0.9-1.1) H Sodium Level 140 mEQ/L (135-145) Potassium Level 4.2 mEQ/L (3.4-4.9) Chloride Level 97 mEQ/L (98-107) L Carbon Dioxide Level 31 mEQ/L (20-30) H Anion Gap 12 (5-15) Blood Urea Nitrogen 63 mg/dL (7-23) H Creatinine 1.8 mg/dL (0.7-1.2) H Estimat Glomerular Filtration Rate mL/min (>60) Glucose Level 152 mg/dL (74-106) H Calcium Level 8.8 mg/dL (8.6-10.2) Phosphorus Level 4.0 mg/dL (2.5-4.8) Magnesium Level 2.3 mg/dL (1.7-2.5) Total Bilirubin 0.8 mg/dL (0.0-1.2) Aspartate Amino Transf (AST/SGOT) 26 U/L (5-40) Alanine Aminotransferase (ALT/SGPT) 15 U/L (3-41) Alkaline Phosphatase 114 U/L (40-129) Total Protein 7.0 g/dL (6.6-8.7) Albumin 3.3 g/dL (3.5-5.2) L Globulin 3.7 g/dL Albumin/Globulin Ratio 0.8 (1.0-2.7) LUCILLE TERRY June 19, 2016 16:13
[2016-06-19 20:00] VITALS: BP 100/59
--- NOTE | 2016-06-19 23:08 | Nephrology Progress Note ---
Assessment/Plan Assessment 1. Acute renal failure. The etiology of acute renal failure is acute tubular necrosis or cardiorenal syndrome. 2. Chronic kidney disease.now creatinine is going down but bun has gone up 3. Renal osteodystrophy. 4. Hypertension. 5. Diabetes. Plan plan monitoring renal function replace electrolyte as need it monitoring in and out put continue lasix daily wt Subjective Constitutional: Reports: malaise, weakness HEENT: Reports: no symptoms Genitourinary: Reports: no symptoms Neurologic/Psychiatric: Reports: no symptoms Subjective alert and awake feeling better Objective Objective Last 24 Hour Vital Signs Date Time Temp Pulse Resp B/P Pulse Ox O2 Delivery O2 Flow Rate FiO2 06/19/16 20:38 51 15 95 Facial 40 06/19/16 20:00 71 06/19/16 20:00 98.1 67 20 100/59 95 Nasal Cannula 2.0 06/19/16 19:10 97 Nasal Cannula 5.0 40 06/19/16 19:10 Nasal Cannula 5.0 40 06/19/16 16:00 2.0 06/19/16 16:00 65 06/19/16 16:00 97.0 65 18 139/77 92 Nasal Cannula 6.0 06/19/16 12:00 2.0 06/19/16 12:00 97.2 58 18 136/69 96 Nasal Cannula 2.0 06/19/16 12:00 58 06/19/16 10:00 61 14 97 06/19/16 09:05 62 18 96 Facial 40 06/19/16 08:00 28 06/19/16 08:00 96.8 52 14 112/55 98 Bi-pap 40 06/19/16 08:00 54 06/19/16 07:51 58 14 98 06/19/16 06:53 Bi-pap 40 06/19/16 06:53 96 Bi-pap 40 06/19/16 06:53 59 16 96 Facial 40 06/19/16 05:12 53 14 96 Facial 40 06/19/16 04:00 97.2 56 16 145/70 96 Nasal Cannula 06/19/16 04:00 58 06/19/16 03:29 58 20 98 Facial 40 06/19/16 01:37 55 20 98 Facial 40 06/19/16 00:00 97.2 56 16 131/51 96 Nasal Cannula 06/19/16 00:00 56 Intake and Output 06/18/16 06/19/16 19:00 07:00 Intake Total 780 ml 390 ml Output Total 400 ml 1850 ml Balance 380 ml -1460 ml Intake Oral 770 ml 300 ml IV Total 10 ml 90 ml Output Urine Total 400 ml 1850 ml Laboratory Tests 06/19/16 04:00: Prothrombin Time 29.1H, Prothromb Time International Ratio 2.8H 06/19/16 05:00: Sodium Level 140, Potassium Level 4.2, Chloride Level 97L, Carbon Dioxide Level 31H, Anion Gap 12, Blood Urea Nitrogen 63H, Creatinine 1.8H, Estimat Glomerular Filtration Rate , Glucose Level 152H, Calcium Level 8.8, Phosphorus Level 4.0, Magnesium Level 2.3, Total Bilirubin 0.8, Aspartate Amino Transf (AST/SGOT) 26, Alanine Aminotransferase (ALT/SGPT) 15, Alkaline Phosphatase 114, Total Protein 7.0, Albumin 3.3L, Globulin 3.7, Albumin/Globulin Ratio 0.8L Height (Feet): 6 Height (Inches): 0.00 Weight (Pounds): 280 Objective HEAD AND NECK: No JVP. No LAD. No thyromegaly. Extraocular movement intact. Pupils are reactive to light and accommodation. LUNGS: Clear to auscultation. CARDIAC: Regular rate and rhythm. S1-S2 no murmur. No rub. ABDOMEN: Soft, nontender, and nondistended. EXTREMITIES: There is 2 to 3+ edema. No clubbing. No cyanosis. CHRISTIAN PHILIP June 19, 2016 23:08
[2016-06-20] VITALS (7 sets, daily range): BP systolic 128–144; BP diastolic 71–98
[2016-06-20 05:48] LABS: MEAN CORPUSCULAR HEMOGLOBIN 26.5 PG (27.0-31.0); MEAN CORPUSCULAR HGB CONC 31.3 G/DL (32.0-36.0); MEAN CORPUSCULAR VOLUME 85 FL (80-99); MEAN PLATELET VOLUME 6.7 FL (6.5-10.1); PLATELET COUNT 118 K/UL (150-450); RED BLOOD COUNT 4.03 M/UL (4.70-6.10); WHITE BLOOD COUNT 5.3 K/UL (4.8-10.8)
[2016-06-20 06:30] LABS: ALANINE AMINOTRANSFERASE 16 U/L (3-41); ALBUMIN/GLOBULIN RATIO 0.9 (1.0-2.7); ANION GAP 17 (5-15); ASPARTATE AMINO TRANSFERASE 29 U/L (5-40); CALCIUM 8.8 mg/dL (8.6-10.2); CARBON DIOXIDE 28 mEQ/L (20-30); CHLORIDE 98 mEQ/L (98-107); CREATININE 1.7 mg/dL (0.7-1.2); HEMOLYSIS 18; INR 3.6 (0.9-1.1); POTASSIUM 4.1 mEQ/L (3.4-4.9); PROTHROMBIN TIME 37.7 SEC (9.30-11.50); SODIUM 143 mEQ/L (135-145); TOTAL PROTEIN 6.9 g/dL (6.6-8.7)
[2016-06-20] MEDS: Tamsulosin 0.4mg cap ORAL SCH ×2 (09:01→17:41)
[2016-06-20] MEDS: Solu-MEDROL 125mg Inj IV SCH (09:01)
[2016-06-20] MEDS: Theophylline ER 100mg ORAL SCH ×2 (09:01→20:58)
[2016-06-20] MEDS: Torsemide 10mg tab ORAL SCH (09:02)
[2016-06-20] MEDS: Benzonatate 100mg Perles ORAL SCH ×3 (09:02→17:41)
[2016-06-20 09:38] LABS: ANISOCYTOSIS 1+; BAND NEUTROPHILS % (MANUAL) 0 % (0-8); BASOPHILS % (MANUAL) 0 % (0-2); EOSINOPHILS % (MANUAL) 0 % (0-3); HYPOCHROMASIA 1+; LYMPHOCYTES % (MANUAL) 2 % (20-45); NEUTROPHILS % (MANUAL) 95 % (45-75); PLATELET ESTIMATE DECREASED; PLATELET MORPHOLOGY NORMAL; TOTAL CELLS COUNTED 100
--- NOTE | 2016-06-20 11:18 | Diagnostic Imaging Report ---
Indication: Dyspnea Comparison: 06/18/16 A single view chest radiograph was obtained. Findings: Interstitial pulmonary edema is present. There is a suspected right pleural effusion. Heart is markedly enlarged. Impression: Congestive heart failure
--- NOTE | 2016-06-20 12:44 | Pulmonology Progress Note ---
Assessment/Plan Problems: (1) Pulmonary edema (2) COPD exacerbation (3) Acute encephalopathy (4) Acute respiratory failure (5) SANTI (obstructive sleep apnea) (6) COPD (chronic obstructive pulmonary disease) (7) Bradycardia (8) Pulmonary hypertension (9) Hydronephrosis Assessment/Plan mental status improving kohli start on theophyline , tapersteroids check sputum continue antibiotics on diuretics, on lasix drip check electrolytes cxr not much improvement so far total of 2 liter negative Subjective Interval Events: less SOB Allergies: Coded Allergies: No Known Allergies (Unverified , 06/14/16) Objective Last 24 Hour Vital Signs Date Time Temp Pulse Resp B/P Pulse Ox O2 Delivery O2 Flow Rate FiO2 06/20/16 12:00 72 06/20/16 12:00 97.9 59 21 128/71 97 Nasal Cannula 5.0 06/20/16 08:00 74 06/20/16 08:00 97.6 67 19 131/78 97 Nasal Cannula 5.0 06/20/16 06:56 Venturi Mask 8.0 40 06/20/16 06:56 98 Venturi Mask 8.0 40 06/20/16 06:51 47 15 97 Facial 40 06/20/16 05:21 49 12 98 Facial 40 06/20/16 04:00 98.3 65 20 140/85 98 Nasal Cannula 2.0 06/20/16 03:11 51 06/20/16 02:38 74 19 96 Facial 40 06/20/16 01:09 59 17 96 Facial 40 06/20/16 00:00 98.0 61 18 131/78 96 Nasal Cannula 2.0 06/20/16 00:00 59 06/19/16 22:45 63 18 96 Facial 40 06/19/16 20:38 51 15 95 Facial 40 06/19/16 20:00 71 06/19/16 20:00 98.1 67 20 100/59 95 Nasal Cannula 2.0 06/19/16 19:10 97 Nasal Cannula 5.0 40 06/19/16 19:10 Nasal Cannula 5.0 40 06/19/16 16:00 2.0 06/19/16 16:00 65 06/19/16 16:00 97.0 65 18 139/77 92 Nasal Cannula 6.0 Intake and Output 06/19/16 06/20/16 19:00 07:00 Intake Total 840 ml 205 ml Output Total 1600 ml 1750 ml Balance -760 ml -1545 ml Intake Oral 800 ml 100 ml IV Total 40 ml 105 ml Output Urine Total 1600 ml 1750 ml General Appearance: WD/WN, no acute distress HEENT: atraumatic Respiratory/Chest: chest wall non-tender, normal breath sounds Cardiovascular: normal peripheral pulses, normal rate Abdomen: normal bowel sounds, soft, non tender Skin: no rash Neurologic/Psychiatric: photograph editor II-XII grossly normal Laboratory Tests 06/20/16 03:40: White Blood Count 5.3, Red Blood Count 4.03L, Hemoglobin 10.7L, Hematocrit 34.1L , Mean Corpuscular Volume 85, Mean Corpuscular Hemoglobin 26.5L, Mean Corpuscular Hemoglobin Concent 31.3L, Red Cell Distribution Width 19.0H, Platelet Count 118L, Mean Platelet Volume 6.7, Neutrophils (%) (Auto) , Lymphocytes (%) (Auto) , Monocytes (%) (Auto) , Eosinophils (%) (Auto) , Basophils (%) (Auto) , Differential Total Cells Counted 100, Neutrophils % ( Manual) 95H, Lymphocytes % (Manual) 2L, Monocytes % (Manual) 3, Eosinophils % ( Manual) 0, Basophils % (Manual) 0, Band Neutrophils 0, Platelet Estimate DecreasedL, Platelet Morphology Normal, Hypochromasia 1+, Anisocytosis 1+, Prothrombin Time 37.7H, Prothromb Time International Ratio 3.6H, Sodium Level 143, Potassium Level 4.1, Chloride Level 98, Carbon Dioxide Level 28, Anion Gap 17H, Blood Urea Nitrogen 70H, Creatinine 1.7H, Estimat Glomerular Filtration Rate , Glucose Level 123H, Calcium Level 8.8, Total Bilirubin 0.8, Aspartate Amino Transf (AST/SGOT) 29, Alanine Aminotransferase (ALT/SGPT) 16, Alkaline Phosphatase 109, Pro-B-Type Natriuretic Peptide 8178H, Total Protein 6.9, Albumin 3.3L, Globulin 3.6, Albumin/Globulin Ratio 0.9L Current Medications Medications (Trade) Dose Ordered Sig/Nga Route PRN Reason Start Time Stop Time Status Last Admin Dose Admin Acetaminophen (Tylenol) 650 mg Q4H PRN ORAL Fever 06/14/16 17:15 07/14/16 17:14 Benzonatate (Tessalon Perles) 100 mg THREE TIMES A DAY ORAL 06/15/16 09:00 07/15/16 08:59 06/20/16 11:51 Dextrose (Dextrose 50%) STAT PRN IV Hypoglycemia 06/14/16 17:15 07/14/16 17:14 Furosemide/ Dextrose (Lasix/D5W) 100 ml @ 10 mls/hr Q10H IV 06/18/16 14:00 07/18/16 13:59 06/20/16 06:08 Guaifenesin (Robitussin) 200 mg Q4H PRN ORAL For Cough 06/14/16 22:30 07/14/16 22:29 06/17/16 14:02 Methylprednisolone Sodium Succinate 60 mg 60 mg EVERY 12 HOURS IV 06/17/16 21:00 07/17/16 20:59 06/20/16 09:01 Nateglinide (Starlix) 120 mg TIAC ORAL 06/19/16 17:45 07/19/16 17:44 06/20/16 11:51 Ondansetron HCl (Zofran) 4 mg Q6H PRN IVP Nausea & Vomiting 06/14/16 17:15 07/14/16 17:14 Polyethylene Glycol (Miralax) 17 gm DAILYPRN PRN ORAL Constipation 06/14/16 17:15 07/14/16 17:14 06/20/16 04:29 Tamsulosin HCl (Flomax) 0.4 mg TWICE A DAY ORAL 06/15/16 09:00 07/15/16 08:59 06/20/16 09:01 Temazepam (Restoril) 15 mg HSPRN PRN ORAL Insomnia 06/14/16 17:15 06/21/16 17:14 06/17/16 23:56 Theophylline (Anthony-Dur) 100 mg EVERY 12 HOURS ORAL 06/16/16 11:00 07/16/16 10:59 06/20/16 09:01 Torsemide (Demadex) 20 mg DAILY ORAL 06/16/16 09:00 07/16/16 08:59 06/20/16 09:02 Tramadol HCl (Ultram) 50 mg Q8H PRN ORAL For Pain 06/14/16 22:30 06/21/16 22:29 06/18/16 21:02 Warfarin Sodium (Coumadin per pharmacy) 1 ea DAILY PRN MISC Per rx protocol 06/15/16 20:30 07/15/16 20:29 RONAK GOMES June 20, 2016 12:44
--- NOTE | 2016-06-20 16:19 | Diagnostic Imaging Report ---
Indication: Abdominal pain Technique: Continuous helical transaxial imaging of the abdomen and pelvis was obtained from the lung bases to the pubic symphysis. No intravenous contrast was administered. Coronal 2-D reformats were also obtained. Total Dose length Product (DLP): [address] Dose Index Volume (CTDIvol): 19.5, 19.5 mGy Comparison: none Findings: There is fairly marked cardiomegaly present. There is a small pericardial effusion and a moderate right pleural effusion. Trace left pleural effusion is present. Significant right posterior basilar atelectasis demonstrated. Moderate ascites demonstrated. Arterial vascular calcifications are moderate in degree. Spleen is enlarged measuring 15 cm. Inherent limitation due to body habitus as well as lack of intravenous contrast. Gallbladder is contracted. There is no free air. No evidence of bowel obstruction. Boggs catheter is present in good position. Bones are osteopenic. There is no obvious nephrolithiasis. There is the suggestion of renal hypodensities, possibly cystic within the right kidney.. Impression: Moderate ascites. This could be on the basis of chronic liver disease but evaluation of the liver is limited on the current study is obtained. Splenomegaly is noted. Bilateral pleural effusions larger on the right. Right lower lobe atelectasis noted. Marked cardiomegaly Pericardial effusion Atherosclerotic vascular disease Contracted gallbladder not evaluated adequately. Suggestion of multiple hypodensities in the right kidney. Cystic versus solid. Osteopenia and spondylosis. Boggs catheter in good position Limited evaluation due to the absence of IV contrast The CT scanner at [facility] is accredited by the [employer] and the scans are performed using dose optimization techniques as appropriate to a performed exam including Automatic Exposure control.
--- NOTE | 2016-06-20 16:22 | Nephrology Progress Note ---
Assessment/Plan Assessment 1. Acute renal failure. The etiology of acute renal failure is acute tubular necrosis or cardiorenal syndrome. 2. Chronic kidney disease.now creatinine is going down but bun has gone up 3. Renal osteodystrophy. 4. Hypertension. 5. Diabetes. Plan plan monitoring renal function replace electrolyte as need it monitoring in and out put continue lasix daily wt Subjective Constitutional: Reports: no symptoms HEENT: Reports: no symptoms Neurologic/Psychiatric: Reports: no symptoms Subjective alert and awake feeling better Objective Objective Last 24 Hour Vital Signs Date Time Temp Pulse Resp B/P Pulse Ox O2 Delivery O2 Flow Rate FiO2 06/20/16 16:00 68 06/20/16 12:00 72 06/20/16 12:00 97.9 59 21 128/71 97 Nasal Cannula 5.0 06/20/16 08:00 74 06/20/16 08:00 97.6 67 19 131/78 97 Nasal Cannula 5.0 06/20/16 06:56 Venturi Mask 8.0 40 06/20/16 06:56 98 Venturi Mask 8.0 40 06/20/16 06:51 47 15 97 Facial 40 06/20/16 05:21 49 12 98 Facial 40 06/20/16 04:00 98.3 65 20 140/85 98 Nasal Cannula 2.0 06/20/16 03:11 51 06/20/16 02:38 74 19 96 Facial 40 06/20/16 01:09 59 17 96 Facial 40 06/20/16 00:00 98.0 61 18 131/78 96 Nasal Cannula 2.0 06/20/16 00:00 59 06/19/16 22:45 63 18 96 Facial 40 06/19/16 20:38 51 15 95 Facial 40 06/19/16 20:00 71 06/19/16 20:00 98.1 67 20 100/59 95 Nasal Cannula 2.0 06/19/16 19:10 97 Nasal Cannula 5.0 40 06/19/16 19:10 Nasal Cannula 5.0 40 Intake and Output 06/19/16 06/20/16 19:00 07:00 Intake Total 840 ml 205 ml Output Total 1600 ml 1750 ml Balance -760 ml -1545 ml Intake Oral 800 ml 100 ml IV Total 40 ml 105 ml Output Urine Total 1600 ml 1750 ml Laboratory Tests 5/15/17 03:40: White Blood Count 5.3, Red Blood Count 4.03L, Hemoglobin 10.7L, Hematocrit 34.1L , Mean Corpuscular Volume 85, Mean Corpuscular Hemoglobin 26.5L, Mean Corpuscular Hemoglobin Concent 31.3L, Red Cell Distribution Width 19.0H, Platelet Count 118L, Mean Platelet Volume 6.7, Neutrophils (%) (Auto) , Lymphocytes (%) (Auto) , Monocytes (%) (Auto) , Eosinophils (%) (Auto) , Basophils (%) (Auto) , Differential Total Cells Counted 100, Neutrophils % ( Manual) 95H, Lymphocytes % (Manual) 2L, Monocytes % (Manual) 3, Eosinophils % ( Manual) 0, Basophils % (Manual) 0, Band Neutrophils 0, Platelet Estimate DecreasedL, Platelet Morphology Normal, Hypochromasia 1+, Anisocytosis 1+, Prothrombin Time 37.7H, Prothromb Time International Ratio 3.6H, Sodium Level 143, Potassium Level 4.1, Chloride Level 98, Carbon Dioxide Level 28, Anion Gap 17H, Blood Urea Nitrogen 70H, Creatinine 1.7H, Estimat Glomerular Filtration Rate , Glucose Level 123H, Calcium Level 8.8, Total Bilirubin 0.8, Aspartate Amino Transf (AST/SGOT) 29, Alanine Aminotransferase (ALT/SGPT) 16, Alkaline Phosphatase 109, Pro-B-Type Natriuretic Peptide 8178H, Total Protein 6.9, Albumin 3.3L, Globulin 3.6, Albumin/Globulin Ratio 0.9L Height (Feet): 6 Height (Inches): 0.00 Weight (Pounds): 279 Objective HEAD AND NECK: No JVP. No LAD. No thyromegaly. Extraocular movement intact. Pupils are reactive to light and accommodation. LUNGS: Clear to auscultation. CARDIAC: Regular rate and rhythm. S1-S2 no murmur. No rub. ABDOMEN: Soft, nontender, and nondistended. EXTREMITIES: There is 2 to 3+ edema. No clubbing. No cyanosis. CHRISTIAN PHILIP June 20, 2016 16:22
--- NOTE | 2016-06-20 17:16 | Cardiology Progress Note ---
Assessment/Plan Assessment/Plan ams possible co2 narcosis mrobid obesity with alveolar hypoventilation syndrome jose on cpap afib with slow hr has refused pacer implantation chronic coagulopathy with couamdin cm nocturnal hypoxemia iwth pulm htn elevated ca 19-9 cri hyperlipidemia cri however recent cr 1.3at [facility] 3 mon ago prostate cancer with hydronephrosis copd gout core pulmonale remain awake and responsive cr stable base line 1.3 continue bipap as needed now on iv lasix drip on Coumadin per pharmacy tele afib no severe eduardo nor sig pauses has pvcs vs abbarency adn non sustained vt avoid neg chronotropic agents trop seem fine lv dysfunction seems new compared to prior [facility] echo reports all trop neg may need ischemia eval at [facility] when dcd form here with his usual warning coordination meteorologist dr navarrete has refused mary for phtn recently off ivf in future once renal fxn stable will consider acei cxr ntoed ct noted dc torsemide while on lasix drip Subjective Cardiovascular: Denies: chest pain, irregular heart rate, lightheadedness Respiratory: Reports: shortness of breath Gastrointestinal/Abdominal: Denies: abdominal pain Genitourinary: Denies: burning Subjective on lasix drip off bipap for alise moment not back to bselien breathign Objective Last 24 Hour Vital Signs Date Time Temp Pulse Resp B/P Pulse Ox O2 Delivery O2 Flow Rate FiO2 06/20/16 16:00 68 06/20/16 12:00 72 06/20/16 12:00 97.9 59 21 128/71 97 Nasal Cannula 5.0 06/20/16 08:00 74 06/20/16 08:00 97.6 67 19 131/78 97 Nasal Cannula 5.0 06/20/16 06:56 Venturi Mask 8.0 40 06/20/16 06:56 98 Venturi Mask 8.0 40 06/20/16 06:51 47 15 97 Facial 40 06/20/16 05:21 49 12 98 Facial 40 06/20/16 04:00 98.3 65 20 140/85 98 Nasal Cannula 2.0 06/20/16 03:11 51 06/20/16 02:38 74 19 96 Facial 40 06/20/16 01:09 59 17 96 Facial 40 06/20/16 00:00 98.0 61 18 131/78 96 Nasal Cannula 2.0 06/20/16 00:00 59 06/19/16 22:45 63 18 96 Facial 40 06/19/16 20:38 51 15 95 Facial 40 06/19/16 20:00 71 06/19/16 20:00 98.1 67 20 100/59 95 Nasal Cannula 2.0 06/19/16 19:10 97 Nasal Cannula 5.0 40 06/19/16 19:10 Nasal Cannula 5.0 40 General Appearance: no apparent distress, alert, obese Neck: supple Cardiovascular: irregularly irregular Respiratory/Chest: expiratory wheezing, inspiratory wheezing Abdomen: normal bowel sounds, non tender, soft Extremities: no swelling Intake and Output 06/19/16 06/20/16 19:00 07:00 Intake Total 840 ml 205 ml Output Total 1600 ml 1750 ml Balance -760 ml -1545 ml Intake Oral 800 ml 100 ml IV Total 40 ml 105 ml Output Urine Total 1600 ml 1750 ml Laboratory Tests Test 06/20/16 03:40 White Blood Count 5.3 K/UL (4.8-10.8) Red Blood Count 4.03 M/UL (4.70-6.10) L Hemoglobin 10.7 G/DL (14.2-18.0) L Hematocrit 34.1 % (42.0-52.0) L Mean Corpuscular Volume 85 FL (80-99) Mean Corpuscular Hemoglobin 26.5 PG (27.0-31.0) L Mean Corpuscular Hemoglobin Concent 31.3 G/DL (32.0-36.0) L Red Cell Distribution Width 19.0 % (11.6-14.8) H Platelet Count 118 K/UL (150-450) L Mean Platelet Volume 6.7 FL (6.5-10.1) Neutrophils (%) (Auto) % (45.0-75.0) Lymphocytes (%) (Auto) % (20.0-45.0) Monocytes (%) (Auto) % (1.0-10.0) Eosinophils (%) (Auto) % (0.0-3.0) Basophils (%) (Auto) % (0.0-2.0) Differential Total Cells Counted 100 Neutrophils % (Manual) 95 % (45-75) H Lymphocytes % (Manual) 2 % (20-45) L Monocytes % (Manual) 3 % (1-10) Eosinophils % (Manual) 0 % (0-3) Basophils % (Manual) 0 % (0-2) Band Neutrophils 0 % (0-8) Platelet Estimate Decreased L Platelet Morphology Normal Hypochromasia 1+ Anisocytosis 1+ Prothrombin Time 37.7 SEC (9.30-11.50) H Prothromb Time International Ratio 3.6 (0.9-1.1) H Sodium Level 143 mEQ/L (135-145) Potassium Level 4.1 mEQ/L (3.4-4.9) Chloride Level 98 mEQ/L (98-107) Carbon Dioxide Level 28 mEQ/L (20-30) Anion Gap 17 (5-15) H Blood Urea Nitrogen 70 mg/dL (7-23) H Creatinine 1.7 mg/dL (0.7-1.2) H Estimat Glomerular Filtration Rate mL/min (>60) Glucose Level 123 mg/dL (74-106) H Calcium Level 8.8 mg/dL (8.6-10.2) Total Bilirubin 0.8 mg/dL (0.0-1.2) Aspartate Amino Transf (AST/SGOT) 29 U/L (5-40) Alanine Aminotransferase (ALT/SGPT) 16 U/L (3-41) Alkaline Phosphatase 109 U/L (40-129) Pro-B-Type Natriuretic Peptide 8178 pg/mL (0-450) H Total Protein 6.9 g/dL (6.6-8.7) Albumin 3.3 g/dL (3.5-5.2) L Globulin 3.6 g/dL Albumin/Globulin Ratio 0.9 (1.0-2.7) L KELLEE MUNGUIA June 20, 2016 17:16
--- NOTE | 2016-06-20 23:19 | Consultation ---
DATE OF CONSULTATION: 06/20/2016 REASON FOR CONSULTATION: Urinary retention and bilateral hydronephrosis. HISTORY: I was asked by Dr. Escalante to see the patient, 85-year-old male, with bilateral hydronephrosis and urinary retention. He was admitted with transient episodes of unresponsiveness and found to have bladder full of urine and bilateral hydronephrosis. Boggs catheter was placed. His creatinine was 1.8 and he started to make urine and his creatinine went down in 24 hours to 1.7. Otherwise, the patient was not complaining of any abdominal pain. PAST MEDICAL HISTORY: Significant for history of respiratory failure, chronic alveolar hypoventilation syndrome, cor pulmonale, severe diastolic heart failure, and multiple other medical conditions including chronic renal insufficiency. MEDICATIONS: He is on Lupron injections for history of prostate cancer, Starlix, Flomax, torsemide, colchicine, Coumadin, and tramadol for pain. REVIEW OF SYSTEMS: Review of symptoms was not obtained since the patient was not very verbalizing. PHYSICAL EXAMINATION: GENERAL APPEARANCE: He is afebrile. VITAL SIGNS: Stable. LUNGS: Clear. CARDIOVASCULAR: Regular rate and rhythm. ABDOMEN: Soft and slightly distended. GENITOURINARY: The scrotal exam is normal. RECTAL: Showed some firm prostate without any significant nodules. Boggs catheter is in place. Clear urine. NEUROLOGIC: As above. LABORATORY DATA: His laboratory data was reviewed. His latest creatinine was 1.7. Hemoglobin 11.7 and hematocrit is 35.3. Ultrasound of the kidneys was also reviewed showing bilateral hydronephrosis and dilated bladder. IMPRESSION AND PLAN: This is an 85-year-old with obstructive uropathy and possible history of prostate cancer with a history of metastatic component, currently on Lupron. I will ask to perform CT urogram to assess pre and postvesicle condition and the size of the prostate. He currently will be with the Boggs catheter and we will make a decision based on his overall status and other tests whether he will be a candidate for . Thank you for entrusting me in the care of the patient. We will follow this patient with you. Xavier Silverman M.D. DR: RHONDA JOB#: [id number] CC:
[2016-06-21] VITALS: BP 150/88
[2016-06-21 04:00] VITALS: BP 136/83
[2016-06-21 05:40] LABS: INR 2.7 (0.9-1.1); PROTHROMBIN TIME 28.8 SEC (9.30-11.50)
--- NOTE | 2016-06-21 07:58 | Nephrology Progress Note ---
Assessment/Plan Assessment 1. Acute renal failure. 2. obstructive uropathy 3. Renal osteodystrophy. 4. Hypertension. 5. Diabetes. Plan plan monitoring renal function replace electrolyte as need it monitoring in and out put continue lasix daily wt Subjective Constitutional: Reports: weakness HEENT: Reports: no symptoms Genitourinary: Reports: no symptoms Neurologic/Psychiatric: Reports: no symptoms Subjective alert and awake feeling better sob has significantly improved Objective Objective Last 24 Hour Vital Signs Date Time Temp Pulse Resp B/P Pulse Ox O2 Delivery O2 Flow Rate FiO2 06/21/16 04:00 61 06/21/16 04:00 97.2 63 17 136/83 94 Nasal Cannula 06/21/16 00:00 97.0 64 17 150/88 92 Nasal Cannula 4.0 06/21/16 00:00 64 06/20/16 20:00 69 06/20/16 20:00 96.6 69 17 133/76 95 Nasal Cannula 4.0 06/20/16 19:42 Nasal Cannula 4.0 06/20/16 19:41 98 Nasal Cannula 4.0 06/20/16 16:00 97.9 66 22 144/98 96 Nasal Cannula 4.0 06/20/16 16:00 68 06/20/16 12:00 72 06/20/16 12:00 97.9 59 21 128/71 97 Nasal Cannula 5.0 06/20/16 08:00 74 06/20/16 08:00 97.6 67 19 131/78 97 Nasal Cannula 5.0 Intake and Output 06/20/16 06/21/16 19:00 07:00 Intake Total 220 ml 230 ml Output Total 1950 ml 3000 ml Balance -1730 ml -2770 ml Intake Oral 100 ml 120 ml IV Total 120 ml 110 ml Output Urine Total 1950 ml 3000 ml Laboratory Tests 06/21/16 03:30: Prothrombin Time 28.8H, Prothromb Time International Ratio 2.7H Height (Feet): 6 Height (Inches): 0.00 Weight (Pounds): 279 Objective HEAD AND NECK: No JVP. No LAD. No thyromegaly. Extraocular movement intact. Pupils are reactive to light and accommodation. LUNGS: Clear to auscultation. CARDIAC: Regular rate and rhythm. S1-S2 no murmur. No rub. ABDOMEN: Soft, nontender, and nondistended. EXTREMITIES: There is 2 to 3+ edema. No clubbing. No cyanosis. CHRISTIAN PHILIP June 21, 2016 07:58
[2016-06-21 08:00] VITALS: BP 136/83
[2016-06-21] MEDS: Benzonatate 100mg Perles ORAL SCH ×2 (08:41→13:00)
[2016-06-21] MEDS: Tamsulosin 0.4mg cap ORAL SCH (08:41)
[2016-06-21] MEDS: Theophylline ER 100mg ORAL SCH (08:41)
[2016-06-21] MEDS ORDERED: Solu-MEDROL 40mg Inj IVP SCH (09:00)
[2016-06-21 12:00] VITALS: BP 154/70
[2016-06-21] MEDS ORDERED: THEOPHYLLINE A100 MG ORAL (12:36)
[2016-06-21 14:18] LABS: CREATININE RANDOM URINE 55.5 mg/dL (Not Estab.); MICROALBUMIN/CREATININE RATIO 15.9 mg/g creat (0.0-30.0)
[2016-06-21] MEDS ORDERED: Warfarin Sodium 1mg ORAL ONE (17:00)
--- NOTE | 2016-06-22 19:43 | Discharge Summary ---
Discharge Summary Hospital Course Date of Admission June 14, 2016 at 16:01 Date of Discharge June 21, 2016 at 15:00 Admitting Diagnosis acute chf HPI Sudhakar Robin is a 85 year old male who was admitted on June 14, 2016 at 16:01 for Acute Congestive Heart Failure Hospital Course [id number] Discharge Discharge Disposition Patient was discharged to Home (01) Discharge Diagnoses: Qing Mane NP June 22, 2016 19:43
--- NOTE | 2016-06-23 04:52 | Discharge Summary 2 SIG ---
DATE OF ADMISSION: 06/14/2016 DATE OF DISCHARGE: 06/21/2016 CONSULTANTS: 1. Austin Correa M.D. 2. Miguel Humphrey M.D. 3. Alison Bates M.D. 4. Xavier Silverman M.D. BRIEF HOSPITAL COURSE: The patient is an 85-year-old male with history of coronary artery disease, atrial fibrillation, obstructive sleep apnea, congestive heart failure and COPD, who was brought in by EMS for altered level of consciousness as the patient was unable to be aroused. Per EMS report, when they arrived he was minimally responsive to them and had low oxygen saturation in the high 70s. The patient is normally on oxygen and is on CPAP and was recently diagnosed to have pulmonary edema and was started on Lasix. On evaluation at ED, the patient's oxygenation was in the high 80s and was wheezing and was placed on BiPAP. Chest x-ray was done showed diffuse patchy opacities consistent with pulmonary edema. Head CT showed no acute intracranial bleed, mass effect, or edema with evidence of small chronic vessel disease in white matter tract, moderate atrophy of the brain and left scalp contusion and laceration. EKG showed atrial fibrillation with slow ventricular response. The patient was admitted to [facility]. He was seen by Dr. Correa for evaluation of arrhythmia and congestive heart failure. Echocardiogram showed atrial fibrillation. An echocardiogram was done showed global hypokinesis with septal dyskinesis and left ventricular ejection fraction of 35% to 40% with severe pulmonary hypertension. He had a recent echocardiogram done at [facility] three months ago with ejection fraction of 68%. The left ventricular dysfunction seems new compared to prior [facility] echo report. His troponins remained negative. He was given IV diuresis and was given Lasix drip. On telemetry, he was on atrial fibrillation with slow heart rate, however, refused pacer implantation. He was continued on Coumadin for anticoagulation. He was seen by Dr. Humphrey for neurologic evaluation. Toxicology panel was normal. There is no clear evidence of nonconvulsive seizure activities. An EEG was done showed mild to moderate diffuse slowing. He was also seen by Dr. Bates for acute renal failure. Creatinine was elevated to 1.9. Renal ultrasound was done showed moderate distention of the urinary bladder with bilateral hydronephrosis. Boggs catheter was placed in. Dr. Gershman was consulted. The patient has obstructive uropathy with history of metastatic component, as he is currently on Lupron. CT of the abdomen and pelvis showed moderate ascites with multiple hypodensities on the right kidney, pleural effusion and pericardial effusion, however, limited exam due to absence of intravenous contrast. He was eventually tapered off of BiPAP and steroids were tapered. He was given theophylline. He came in with a deep tissue injury on the sacrum and bridge of the nose. Wound care was rendered. Creatinine was down trending. The patient was eventually discharged home with home health. FINAL DIAGNOSES: 1. Acute respiratory failure requiring BiPAP. 2. Pulmonary edema. 3. Acute chronic obstructive pulmonary disease exacerbation. 4. Acute metabolic encephalopathy. 5. Obstructive sleep apnea. 6. Pulmonary hypertension. 7. Acute kidney injury. 8. Acute renal failure, etiology is acute tubular necrosis or cardiorenal syndrome. 9. Urinary retention. 10. Morbid obesity with alveolar hypoventilation syndrome. 11. Obstructive sleep apnea on continuous positive airway pressure therapy. 12. Atrial fibrillation with slow heart rate. 13. Hyperlipidemia. 14. Prostate cancer with hydronephrosis. 15. Gout. 16. Renal osteodystrophy. 17. Obstructive uropathy. 18. Deep tissue injury on sacral area and nose, present on admission. Cristina Escalante M.D. I have been assigned to dictate discharge summary on this account and I was not involved in the patient's management. Qing Mane N.P. DR: JUAN JOB#: [id number] CC:
== END 2016-06-21 15:00 | disposition home health service (06) | DRG 189 ==
LOC: EDBD 15:18 → EMR 15:25 → 2W 16:01 → EDBEDREQ 16:21 → 2W 17:16
PROC: 5A09457 Assistance with Respiratory Ventilation, 24-96 Consecutive Hours, Continuous Positive Airway Pressure (ICD-10-PCS; principal; 2016-06-14)
DX: J96.01 Acute respiratory failure with hypoxia (principal); N17.0 Acute kidney failure with tubular necrosis; G93.41 Metabolic encephalopathy; I50.33 Acute on chronic diastolic (congestive) heart failure; L89.150 Pressure ulcer of sacral region, unstageable; E66.2 Morbid (severe) obesity with alveolar hypoventilation; N13.30 Unspecified hydronephrosis; J44.1 Chronic obstructive pulmonary disease with (acute) exacerbation; I27.2 Other secondary pulmonary hypertension; I13.10 Hypertensive heart and chronic kidney disease without heart failure, with stage 1 through stage 4 chronic kidney disease, or unspecified chronic kidney disease; N25.0 Renal osteodystrophy; R00.1 Bradycardia, unspecified; N13.9 Obstructive and reflux uropathy, unspecified; E11.9 Type 2 diabetes mellitus without complications; Z85.46 Personal history of malignant neoplasm of prostate; N18.9 Chronic kidney disease, unspecified; R33.9 Retention of urine, unspecified; I48.91 Unspecified atrial fibrillation; E78.5 Hyperlipidemia, unspecified; M10.9 Gout, unspecified; I49.5 Sick sinus syndrome; I27.81 Cor pulmonale (chronic); Z79.01 Long term (current) use of anticoagulants; L89.890 Pressure ulcer of other site, unstageable
CPT/HCPCS: 36415; 36600; 70450; 71010; 74176; 76775; 80048; 80053; 80069; 80300; 81003; 82043; 82044; 82140; 82248; 82378; 82550; 82553; 82570; 82607; 82746; 82803; 82962; 83540; 83550; 83605; 83615; 83735; 83880; 84100; 84443; 84484; 85007; 85025; 85044; 85060; 85610; 85651; 85730; 87040; 89050; 93005; 93306; 93970; 94640; 94660; 94664; 94760; 95819; J7620